=== PATIENT | female | born 1930 | race Caucasian/White ===

== ENCOUNTER 2016-06-30 10:26 | Inpatient (IN) | payer OTHER ==
[2016-06-30] VITALS (11 sets, daily range): BP systolic 106–148; BP diastolic 54–97; PULSE 61–84; TEMP 36.4–37.4; O2SAT 91–100; Ht 167.6 cm; Wt 115.6 kg
[~2016-06-30] VITALS: Ht 167.6 cm; Wt 115.6 kg
[~2016-06-30 10:26] MED LIST: ADVIN25/60 INH; ALL100 PO; ASPI-232 PO; FRS/40 PO; FURO80TA63 PO; GABA1CAP PO; GLC5 PO; IPRA1AER2 INH; METO25TA3 PO; OXGN; PANT40TA PO; PRVC/40 PO; WARF4TAB PO
[2016-06-30] MEDS ORDERED: SODIUM CHLORIDE 0.9% 1000ML 1,000 ML IV STA (11:54)
--- NOTE | 2016-06-30 11:58 | EMERGENCY ROOM VISIT NOTE ---
History Report prepared by Eusebio: Johnson Baez Under the Supervision of: Dr. Hiwot Bender M.D. First contact with patient: 11:32 Chief Complaint: SHORTNESS OF BREATH Stated Complaint: SOB Nursing Triage Summary: Patient c/o SOB x 2 weeks. Associated bilateral leg swelling since April but now they're not going down. Wears O2 at night but has been using it during the day as well since Wednesday afternoon 2L. Pt daughter states patient has had dark stool for 2 weeks as well and that pt has had a history of bleeding ulcer. DM NIDDM Glypside. Hx COPD History of Present Illness The patient is an 85 year old female with a history of COPD who presents to the Emergency Room with complaints of persistent shortness of breath for the past two weeks. The patient's shortness of breath is exacerbated by exertion. She wears 2L of oxygen at night only, but has had to wear her oxygen during the day lately due to her increased shortness of breath. The patient also complains of dark stools for the past two weeks. She has not noticed any bright red blood in the stools. A soil fertility specialist of the patient notes that her bilateral lower extremities have been more swollen lately. They have been swollen in the past, which usually resolves. The patient was admitted to the hospital this past summer for a right DVT. She is on Coumadin. Source of History: patient, other (soil fertility specialist) Onset: two weeks Position: other Quality: other (shortness of breath) Timing: other (persistent) Modifying Factors (Relieving): oxygen Associated Symptoms: + melena, No hematochezia Review of Systems See HPI for pertinent positives & negatives. A total of 10 systems reviewed and were otherwise negative. Past Medical & Surgical Medical Problems: (1) Benign hypertension (2) Chronic obstructive lung disease (3) CKD (chronic kidney disease), stage IV (4) Congestive heart failure with left ventricular diastolic dysfunction (5) Diabetes mellitus type 2 (6) Dyslipidemia (7) GI bleed (8) Gout (9) History of peptic ulcer disease (10) Idiopathic peripheral neuropathy (11) Nocturnal hypoxia (12) Peripheral venous insufficiency (13) Sensorineural hearing loss, bilateral (14) Uterine cancer Surgical Problems: (1) Status post appendectomy (2) Status post left hip replacement (3) Status post parathyroidectomy Family History Colon cancer UNCLE Heart disease MOTHER Lung cancer BROTHER Uterine cancer DAUGHTER DAUGHTER Social History Smoking Status: Never Smoker Alcohol Use: none Drug Use: none Marital Status: Housing Status: lives with family Current/Historical Medications Scheduled Allopurinol (Zyloprim), 100 MG PO BID Aspirin (Aspir-81), 81 MG PO HS Calcitriol (Calcitriol), 0.25 MCG PO DAILY Cholecalciferol (Vitamin D3), 1,000 UNITS PO DAILY Furosemide (Lasix), 80 MG PO QAM Furosemide (Lasix), 40 MG PO 4PM Gabapentin (Neurontin), 100 MG PO BID Glipizide (Glipizide), 5 MG PO QAM Insulin Aspart (Novolog Flexpen), 0 UNITS SC ACHS Insulin Glargine (Lantus Solostar), 0 UNIT SC DAILY Metoprolol Succ (Toprol Xl) (Toprol-Xl), 50 MG PO QAM Oxygen (Oxygen), 2 LITERS NA HS Pantoprazole (Protonix), 40 MG PO DAILY Pantoprazole (Protonix), 40 MG IV continuous Pravastatin Sod (Pravastatin Sodium), 40 MG PO HS Warfarin Sodium (Coumadin), 4 MG PO 2XWK Warfarin Sodium (Coumadin), 2 MG PO 5XWK Scheduled PRN Fluticasone Prop/Salmeterol (Advair Diskus 250/50 60 Dose), 1 PUFF INH BID PRN for PRN Ipratropium-Albuterol (Combivent Respimat), 2 PUFFS INH QID PRN for SOB/Wheezing Allergies Coded Allergies: Dextromethorphan (Verified Allergy, Severe, SHORTNESS OF BREATH, 06/30/16) Doxylamine (Verified Allergy, Severe, SHORTNESS OF BREATH, 06/30/16) Ethanol (Verified Allergy, Severe, SHORTNESS OF BREATH, 06/30/16) Pseudoephedrine (Verified Allergy, Severe, SHORTNESS OF BREATH, 06/30/16) Sulfa Antibiotics (Verified Allergy, Unknown, "SULFA DRUGS": HIVES, 06/30/16 ) Physical Exam Vital Signs Date Time Temp Pulse Resp B/P Pulse Ox O2 Delivery O2 Flow Rate FiO2 06/30/16 18:48 36.9 82 16 135/77 91 Room Air 06/30/16 18:25 37.4 76 18 132/97 98 2.0 06/30/16 18:00 80 18 144/70 99 Nasal Cannula 2.0 06/30/16 17:26 37.0 75 17 137/54 100 2.0 06/30/16 17:19 Room Air 06/30/16 16:27 37.0 84 18 127/78 98 2.0 06/30/16 16:26 Nasal Cannula 2.0 06/30/16 15:57 36.9 84 19 129/61 91 06/30/16 15:30 36.6 80 16 117/55 92 06/30/16 14:30 82 16 118/49 92 Room Air 06/30/16 14:01 82 06/30/16 13:48 89 18 118/57 92 Room Air 06/30/16 12:16 78 18 141/64 95 Room Air 06/30/16 11:19 80 06/30/16 11:07 Room Air 06/30/16 10:31 37.1 78 20 114/55 98 Room Air Physical Exam Vital signs reviewed. General: Obese, elderly, chronically ill-appearing female. HEENT: No scleral icterus, PERRLA, neck supple. Atraumatic. Cardiovascular: Regular rate and rhythm, no extra sounds. Pulmonary: Clear to auscultation bilaterally, normal work of breathing. Abdomen: Soft, nontender, nondistended, positive bowel sounds. Obese. Musculoskeletal: Atraumatic, no peripheral edema. Neurologic: Patient awake alert and oriented x 3, full strength in all 4 extremities. Cranial nerves 2 through 12 grossly intact. Skin: Warm, dry, no rash Rectal: Guaiac positive melanotic stool. Normal mucosa Medical Decision & Procedures ER Provider Diagnostic Interpretation: X-ray results as stated below per interpretation by me and the radiologist: CHEST ONE VIEW PORTABLE CLINICAL HISTORY: Shortness of breath. COMPARISON STUDY: Chest radiograph October 15, 2015. FINDINGS: Incidental note is made of degenerative changes of both shoulders with elevation of the left humeral head. There is a surgical anchor within the right humeral head. There is no pneumothorax or pleural effusion. Mild left basilar opacity is present. Mild cardiomegaly is unchanged. There is no evidence of pulmonary edema edema. IMPRESSION: Mild left basilar opacity. Atelectasis is favored over consolidation. Electronically signed by: Nathen Vasquez M.D. 06/30/2016 12:11 PM Dictated Date/Time: 06/30/2016 12:10 PM Laboratory Results Test 06/30/16 00:00 06/30/16 11:50 06/30/16 12:06 Immature Granulocyte % (Auto) 0.5 % White Blood Count 8.43 K/uL (4.8-10.8) Red Blood Count 2.53 M/uL (4.2-5.4) Hemoglobin 6.6 g/dL (12.0-16.0) Hematocrit 21.9 % (37-47) Mean Corpuscular Volume 86.6 fL (80-100) Mean Corpuscular Hemoglobin 26.1 pg (25-34) Mean Corpuscular Hemoglobin Concent 30.1 g/dl (32-36) Platelet Count 319 K/uL (130-400) Mean Platelet Volume 9.6 fL (7.4-10.4) Neutrophils (%) (Auto) 71.6 % Lymphocytes (%) (Auto) 21.0 % Monocytes (%) (Auto) 5.3 % Eosinophils (%) (Auto) 1.5 % Basophils (%) (Auto) 0.1 % Neutrophils # (Auto) 6.03 K/uL (1.4-6.5) Lymphocytes # (Auto) 1.77 K/uL (1.2-3.4) Monocytes # (Auto) 0.45 K/uL (0.11-0.59) Eosinophils # (Auto) 0.13 K/uL (0-0.5) Basophils # (Auto) 0.01 K/uL (0-0.2) Immature Granulocyte # (Auto) 0.04 K/uL (0.00-0.02) Red Blood Cell Morphology Unremarkable Hypochromasia PRESENT Activated Partial Thromboplast Time 44.8 SECONDS (21.0-31.0) Partial Thromboplastin Ratio 1.7 Total Bilirubin 0.2 mg/dl (0.2-1) Direct Bilirubin < 0.1 mg/dl (0-0.2) Aspartate Amino Transf (AST/SGOT) 11 U/L (15-37) Alanine Aminotransferase (ALT/SGPT) 13 U/L (12-78) Alkaline Phosphatase 74 U/L (45-117) Total Protein 6.4 gm/dl (6.4-8.2) Albumin 3.1 gm/dl (3.4-5.0) Urine Color YELLOW Urine Appearance CLEAR (CLEAR) Urine pH 6.5 (4.5-7.5) Urine Specific [place] 1.014 (1.000-1.030) Urine Protein NEG (NEG) Urine Glucose (UA) NEG (NEG) Urine Ketones NEG (NEG) Urine Occult Blood NEG (NEG) Urine Nitrite NEG (NEG) Urine Bilirubin NEG (NEG) Urine Urobilinogen NEG (NEG) Urine Leukocyte Esterase TRACE (NEG) Urine WBC (Auto) 1-5 /hpf (0-5) Urine RBC (Auto) 0-4 /hpf (0-4) Urine Hyaline Casts (Auto) 1-5 /lpf (0-5) Urine Epithelial Cells (Auto) >30 /lpf (0-5) Urine Bacteria (Auto) NEG (NEG) Bedside Troponin I 0.010 ng/ml (0-0.045) Laboratory results per my review. Medications Administered Medications (Trade) Dose Ordered Sig/Champ Route Start Time Stop Time Status Last Admin Dose Admin Pantoprazole Sodium 40 mg/ Syringe 10 ml @ 5 mls/min NOW ONCE IV 06/30/16 12:00 06/30/16 12:01 DC 06/30/16 12:16 5 MLS/MIN Sodium Chloride 1,000 ml @ 125 mls/hr Q8H STAT IV 06/30/16 11:54 06/30/16 19:07 DC 06/30/16 12:16 125 MLS/HR Phytonadione/ Sodium Chloride (Aqua-Mephyton Inj/Nss 50ml) 50.5 ml @ 101 mls/hr ONE ONCE IV 06/30/16 14:15 06/30/16 14:44 DC 06/30/16 15:04 101 MLS/HR Polyethylene (Miralax Powder Packet) 17 gm DAILY PRN PO 06/30/16 16:45 07/02/16 21:36 DC 07/02/16 11:02 17 GM Insulin Aspart SLIDING SCALE If C... ACHS SC 06/30/16 18:00 07/02/16 21:36 DC 07/02/16 18:12 4 UNITS Furosemide/Syringe (Lasix Inj/ Syringe) 4 ml @ 4 mls/min 1730 IV 06/30/16 17:30 06/30/16 20:00 DC 2/7/17 19:17 4 MLS/MIN ECG Indication: SOB/dyspnea Rate (beats per minute): 90 Rhythm: atrial flutter Findings: nonspecific-ST abn, other (variable block) ED Course 1153: Past medical records reviewed. The patient was evaluated in room B3b. A complete history and physical examination was performed. 1154: NSS 1000 ml @ 125 mls/hr. 1200: Pantoprazole Sodium 40 mg / syringe 10 ml @ 5 mls/min. 1400: The patient has signed a blood consent. 1415: Phytonadione 5 mg . NSS 50.5 ml @ 101 mls/hr IV. 1440: Discussed the case with Jackelin Bowen PA-C, [facility]. The patient will be evaluated. Medical Decision Differential diagnosis: Etiologies such as infections, reactive airway disease, pneumonia, pneumothorax , COPD, CHF, cardiac ischemia, pulmonary embolism, musculoskeletal, gastrointestinal, as well as others were entertained. This pt was evaluated and appeared to be in no distress. IV access was obtained and lab work was drawn. Pt was placed on the pvc monitor. Pt was given IV protonix as stool is melanotic. Pt was hydrated with NSS. H/H is found to be low at 6.6/21.9. Pt was type and crossed for 2 units. INR was 2.8 , Vit K 5 mg was given. Pt was d/w the hospitalist service for further management. He will return to the ED for worsening of symptoms or any medical concerns. Consults Time Called: 1430 Consulting Physician: Jackelin Bowen PA-C, [facility]. Returned Call: [phone]: Discussed the case with Jackelin Bowen PA-C, [facility]. The patient will be evaluated. Impression Primary Impression: GI bleed Critical Care I have personally spent greater than 30 minutes of critical care time in the direct management of this patient. This includes bedside care, interpretation of diagnostic studies, and testing, discussion with consultants, patient, and family members, and other required patient management activities. This 30 minutes is in excess of all separately billable procedures. Scribe Attestation The scribe's documentation has been prepared under my direction and personally reviewed by me in its entirety. I confirm that the note above accurately reflects all work, treatment, procedures, and medical decision making performed by me. Departure Information Dispostion Being Evaluated By Hospitalist Prescriptions Pantoprazole (Protonix) 1 Ea Inj 40 MG IV continuous for 30 Days Pantoprazole drip Prov: Crystal Hill MD 07/02/16 Insulin Glargine (Lantus Solostar) 100 Unit/Ml Inj 0 UNIT SC DAILY for 30 Days If BSG <120 do not give lantus If BSG 121-179 give 5units If BSG >180 give 10units Prov: Crystal Hill MD 07/02/16 Insulin Aspart (Novolog Flexpen) 100 Units/Ml Inj 0 UNITS SC ACHS for 30 Days Goal range 140 - 180 Correction factor of 40 CHO ratio 1:13 Prov: Crystal Hill MD 07/02/16 Referrals Corky Garces D.OJennyfer (PCP) Patient Instructions [facility] Problem Qualifiers Primary Impression: GI bleed GI bleed type/associated pathology: melena Qualified Codes: K92.1 - Melena
[2016-06-30] MEDS ORDERED: PANTOprazole INJ 40 MG in SYRINGE 0 ML IV ONE (12:00)
--- NOTE | 2016-06-30 12:12 | DIAGNOSTIC IMAGING REPORT ---
CHEST ONE VIEW PORTABLE CLINICAL HISTORY: Shortness of breath. COMPARISON STUDY: Chest radiograph October 15, 2015. FINDINGS: Incidental note is made of degenerative changes of both shoulders with elevation of the left humeral head. There is a surgical anchor within the right humeral head. There is no pneumothorax or pleural effusion. Mild left basilar opacity is present. Mild cardiomegaly is unchanged. There is no evidence of pulmonary edema edema. IMPRESSION: Mild left basilar opacity. Atelectasis is favored over consolidation. Electronically signed by: Nathen Vasquez M.D. 06/30/2016 12:11 PM Dictated Date/Time: 06/30/2016 12:10 PM
[2016-06-30] MEDS ORDERED: ALLO100T PO (12:15)
[2016-06-30] MEDS ORDERED: WARF2TAB PO (12:15)
[2016-06-30 12:17] LABS: INR 2.8 (0.9-1.1); PARTIAL THROMBOPLASTIN RATIO 1.7; PROTHROMBIN TIME (PATIENT) 31.8 SECONDS (9.0-12.0)
[2016-06-30 12:20] LABS: ALT/SGPT 13 U/L (12-78); AST/SGOT 11 U/L (15-37); BLOOD UREA NITROGEN 57 mg/dl (7-18); BUN/CREATININE RATIO 38.2 (10-20); CALCIUM 8.7 mg/dl (8.5-10.1); CARBON DIOXIDE 32 mmol/L (21-32); CHLORIDE 102 mmol/L (98-107); GLUCOSE 205 mg/dl (70-99); POTASSIUM 3.9 mmol/L (3.5-5.1); SODIUM 143 mmol/L (136-145)
[2016-06-30 12:22] LABS: ALKALINE PHOSPHATASE 74 U/L (45-117)
[2016-06-30 12:32] LABS: HEMATOCRIT 21.9 % (37-47); MEAN CELL VOLUME 86.6 fL (80-100); MEAN CORPUSCULAR HEMOGLOBIN 26.1 pg (25-34); MEAN CORPUSCULAR HGB CONC 30.1 g/dl (32-36); MEAN PLATELET VOLUME 9.6 fL (7.4-10.4); PLATELET COUNT 319 K/uL (130-400); RED BLOOD COUNT 2.53 M/uL (4.2-5.4); WHITE BLOOD COUNT 8.43 K/uL (4.8-10.8)
[2016-06-30 12:34] LABS: HYPOCHROMIA PRESENT
[2016-06-30 12:36] LABS: BASO % 0.1 %; BASO ABS # 0.01 K/uL (0-0.2); COMPLETE YES; EOS % 1.5 %; IG% 0.5 %; LYMPH ABS # 1.77 K/uL (1.2-3.4); MONO % 5.3 %; NEUT % 71.6 %
[2016-06-30 13:38] LABS: URINE APPEARANCE CLEAR (CLEAR); URINE BILIRUBIN NEG (NEG); URINE COLOR YELLOW; URINE EPITHELIAL CELL AUTO >30 /lpf (0-5); URINE NITRITE NEG (NEG); URINE PH 6.5 (4.5-7.5); URINE SPECIFIC GRAVITY 1.014 (1.000-1.030); UROBILINOGEN NEG (NEG); ZZUR CULT IF INDIC CLEAN CATCH NO
[2016-06-30 13:40] LABS: MANUAL MICROSCOPIC REQUIRED? NO; REVIEW REQ? NO
[2016-06-30] MEDS ORDERED: PHYTONADIONE INJ 5 MG in SODIUM CHLORIDE 0.9% 50ML 50 ML IV ONE (14:15)
[2016-06-30] MEDS ORDERED: ONDANSETRON INJ 2 MG/ML 2 ML VIAL IV PRN (16:45)
[2016-06-30] MEDS ORDERED: POLYETHYLENE (MIRALAX) 17 GM PACK PO PRN (16:45)
[2016-06-30] MEDS ORDERED: GLUCOSE 40% GEL 15 GM TUBE PO PRN (16:45)
[2016-06-30] MEDS ORDERED: DEXTROSE 50% 50 ML SYR IV PRN (16:45)
[2016-06-30] MEDS ORDERED: GLUCAGON FOR INJ 1 MG VIAL SQ PRN (16:45)
[2016-06-30] MEDS ORDERED: GLUCOSE 10 TABS/TUBE PO PRN (16:45)
[2016-06-30] MEDS ORDERED: PHARMACY GLYCEMIC MGMT CONSULT PRN (17:08)
[2016-06-30] MEDS ORDERED: VTMD1000 PO (17:14)
[2016-06-30] MEDS ORDERED: IPRA1AER2 INH (17:14)
[2016-06-30] MEDS ORDERED: RCL25 PO (17:14)
[2016-06-30] MEDS ORDERED: IPRATROPIUM BROMIDE/ALBUTEROL respimat INH INH PRN (17:15)
[2016-06-30] MEDS ORDERED: FLUTICASONE/SALMETEROL 250/50 (ADVAIR) 14 PUFF/1 INHALER INH PRN (17:15)
[2016-06-30] MEDS ORDERED: FUROSEMIDE INJ 40 MG in SYRINGE 0 ML IV SCH (17:30)
[2016-06-30] MEDS: INSULIN ASPART 100 UNITS/ML 3 ML PEN SC SCH ×2 (19:00→20:56)
[2016-06-30] MEDS ORDERED: PANTOprazole INJ 80 MG in DEXTROSE 5% 100ML IV SCH (19:30)
[2016-06-30] MEDS: PANTOprazole INJ 40 MG in DEXTROSE 5% 100ML IV SCH (19:45)
--- NOTE | 2016-06-30 20:30 | Pharmacy Progress Note ---
Glycemic Control Intl Consult Date of Service Jun 30, 2016. Scope Glycemic Pharmacist consulted by Dr Park on 06/30/15 for glycemic control and to write orders per [facility] inpatient glycemic control protocol Objective Weight (Kilograms): 114.000 Accuchecks BSG (last 24hrs): Test 06/30/16 00:00 06/30/16 19:00 Random Glucose 205 mg/dl (70-99) Bedside Glucose 126 mg/dl (70-90) Laboratory Data (last 24hrs) Test 06/30/16 00:00 Anion Gap 9.0 mmol/L BUN/Creatinine Ratio 38.2 Blood Urea Nitrogen 57 mg/dl Creatinine 1.50 mg/dl Potassium Level 3.9 mmol/L Sodium Level 143 mmol/L White Blood Count 8.43 K/uL Red Blood Count 2.53 M/uL Hemoglobin 6.6 g/dL Hematocrit 21.9 % Mean Corpuscular Volume 86.6 fL Mean Corpuscular Hemoglobin 26.1 pg Mean Corpuscular Hemoglobin Concent 30.1 g/dl Platelet Count 319 K/uL Mean Platelet Volume 9.6 fL Neutrophils (%) (Auto) 71.6 % Lymphocytes (%) (Auto) 21.0 % Monocytes (%) (Auto) 5.3 % Eosinophils (%) (Auto) 1.5 % Basophils (%) (Auto) 0.1 % Neutrophils # (Auto) 6.03 K/uL Lymphocytes # (Auto) 1.77 K/uL Monocytes # (Auto) 0.45 K/uL Eosinophils # (Auto) 0.13 K/uL Basophils # (Auto) 0.01 K/uL HbA1c 7.8% on 10/16/15 Recent Pertinent Medications Outpatient Anti-diabetic Regimen: * Glipizide 5mg PO QAM The patient is currently ordered: * Basal insulin: Lantus 10 units every 24 hours given at bedtime * Correctional Insulin: Novolog Correction per scale ACHS Goal Range: Low 100 mg/dL - High 140 mg/dL Correction Factor: 40 mg/dL/unit * Prandial insulin: Per carb ratio of 1 unit per 13 grams CHO consumed * Oral Agents: On hold for admission Risk Factors for Insulin Resistance: * Illness/Stress Risk Factors for Insulin Sensitivity: * Advanced age * 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 This value is outdated, however, will not re-order as pt received blood transfusion this evening which would make new result unreliable. * Pt is maintained on glipizide as an outpatient - last taken this morning. Sulfonylureas can induce long standing hypoglycemia with acute renal impairment on top of decreased PO intake. Will have to monitor for hypoglycemia closely. * Acute renal impairment can lead to increased insulin sensitivity d/t pharmacodynamic changes - response is greater with a given dose of insulin * Patient is insulin naive and has potential for hypoglycemia - will dose insulin very conservatively and titrate base on BSG trends * Use weight based dosing with minimal stressors * Use "BSG range based" basal insulin dosing- pt likely still has glipizide on board and may not require basal insulin while BSGs close to goal range. * Keep goal range high to help prevent hypo when BSG below goal range (CHO coverage subtracted off) * ADA & AACE recommend a goal blood sugar range 140-180 mg/dl for the majority of critically ill & non-critically ill patients. However, more stringent targets may be selected in individual cases. PLAN FOR INPATIENT GLYCEMIC CONTROL: * Hold outpatient oral diabetes medications (glipizide) * Slightly decrease Basal insulin with Lantus - change dosing to AM as pt likely still has glipizide on board. Dosing based on AM fasting BSG * If BSG 120mg/dl or below --> do not give Lantus * If BSG 121-179mg/dl --> Give Lantus 5 units * If BSG 180mg/dl or above --> Give Lantus 10 units * Continue Correctional Insulin with NOVOLOG per scale ACHS or Q6hrs while NPO * Increase Goal Range: Low 140 mg/dL - High 180 mg/dL * Correction Factor: 40 mg/dL/unit * Nutritional / Prandial insulin per carb ratio of 1 unit per 13 grams CHO consumed * Please note that the plan above was derived based on current level of insulin resistance and hospital stress. These recommendations are appropriate for inpatient admission only. Plan of care upon discharge will need to be reassessed to avoid potential outpatient hypo/hyperglycemia. Thank you.
[2016-06-30 20:34] LABS: HEMATOCRIT 23.4 % (37-47)
[2016-06-30] MEDS: PRAVASTATIN SOD 40 MG TAB PO SCH (20:52)
[2016-06-30] MEDS: GABAPENTIN 100 MG CAP PO SCH (20:52)
[2016-06-30] MEDS: ALLOPURINOL 100 MG TAB PO SCH (20:52)
[2016-06-30] MEDS ORDERED: INSULIN GLARGINE SOLOSTAR 100 UNITS/ML 3 ML PEN SC SCH (21:00)
[2016-06-30] MEDS ORDERED: NURSING VERBAL MED ORDER ONE (21:30)
--- NOTE | 2016-06-30 22:03 | History and Physical ---
History & Physical Date & Time of Service: Jun 30, 2016 at 16:24 Chief Complaint: SOB Primary Care Physician: Corky Garces D.O. History of Present Illness 85 yo F with h/o PUD and UGIB in 2012 presents with dark stools daily for two weeks along with progressive worsening of shortness of breath. She has been on twice daily PPI chronically, and aside from baby aspirin does not take any NSAIDs or OTC medications. She presented similarly in 2012 when she was found to have a mild ring and a small erosion at the GE junction along with a small shallow clean based ulcer in the antrum. A second nodular erosion was also seen with the remainder of the stomach appearing normal. At that time her baby aspirin was held for one week and she was placed on PPI for 3 months with repeat scope 6 weeks later. For the past two weeks she has experienced shortness of breath with increased oxygen requirements up to 2L continuously, dark stools without evidence of bright red blood and feels that her legs are more swollen. She is on Coumadin for a h/o R DVT. She reports using a rescue kit for COPD around the hol, and tool roughly 16 days of prednisone ending around Jun 02. She felt better from a breathing standpoint after that treatment and prior to current symptoms starting. Today in the ER, her bloodwork reveals H/H 6.6/22 and PLTs 319, EBC 8, BUN 57, creat 1/5 with baseline creat 1.2-1.5. She is HD stable and off oxygen during this interview with no conversational dyspnea or significant work of breathing. She was given vit K 5mg, Protonix 40 IV and NSS. Two units of pRBCs were ordered and transfusion was started in the ER. Past Medical/Surgical History Medical Problems: (1) Benign hypertension Status: Chronic (2) Chronic obstructive lung disease Status: Chronic (3) CKD (chronic kidney disease), stage IV Status: Chronic (4) Congestive heart failure with left ventricular diastolic dysfunction Status: Chronic (5) Diabetes mellitus type 2 Status: Chronic (6) Dyslipidemia Status: Chronic (7) Gout Status: Chronic (8) History of peptic ulcer disease Status: Chronic (9) Idiopathic peripheral neuropathy Status: Chronic (10) Nocturnal hypoxia Status: Chronic (11) Peripheral venous insufficiency Status: Chronic (12) Sensorineural hearing loss, bilateral Status: Chronic (13) Uterine cancer Permanent Comment: Postmenopausal vaginal bleeding 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 Social History Smoking Status: Never Smoker Alcohol Use: none Drug Use: none Marital Status: Housing status: lives with family (lives with her daughter) Immunizations History of Influenza Vaccine: Yes Influenza Vaccine Date: Feb 06, 2016 History of Tetanus Vaccine?: Yes Tetanus Immunization Date: Jan 17, 2013 History of Pneumococcal: Yes Pneumococcal Date: Feb 04, 2015 History of Hepatitis B Vaccine: No Multi-Drug Resistant Organisms History of MDRO: No Allergies Coded Allergies: Acetaminophen (Verified Allergy, Severe, SHORTNESS OF BREATH, 06/30/16) Dextromethorphan (Verified Allergy, Severe, SHORTNESS OF BREATH, 06/30/16) Doxylamine (Verified Allergy, Severe, SHORTNESS OF BREATH, 06/30/16) Ethanol (Verified Allergy, Severe, SHORTNESS OF BREATH, 06/30/16) Pseudoephedrine (Verified Allergy, Severe, SHORTNESS OF BREATH, 06/30/16) Sulfa Antibiotics (Verified Allergy, Unknown, "SULFA DRUGS": HIVES, 06/30/16 ) Home Medications Scheduled Allopurinol (Zyloprim), 100 MG PO BID Aspirin (Aspir-81), 81 MG PO HS Calcitriol (Calcitriol), 0.25 MCG PO DAILY Cholecalciferol (Vitamin D3), 1,000 UNITS PO DAILY Furosemide (Lasix), 80 MG PO QAM Furosemide (Lasix), 40 MG PO 4PM Gabapentin (Neurontin), 100 MG PO BID Glipizide (Glipizide), 5 MG PO QAM Metoprolol Succ (Toprol Xl) (Toprol-Xl), 50 MG PO QAM Oxygen (Oxygen), 2 LITERS NA HS Pantoprazole (Protonix), 40 MG PO DAILY Pravastatin Sod (Pravastatin Sodium), 40 MG PO HS Warfarin Sodium (Coumadin), 4 MG PO 2XWK Warfarin Sodium (Coumadin), 2 MG PO 5XWK Scheduled PRN Fluticasone Prop/Salmeterol (Advair Diskus 250/50 60 Dose), 1 PUFF INH BID PRN for PRN Ipratropium-Albuterol (Combivent Respimat), 2 PUFFS INH QID PRN for SOB/Wheezing Review of Systems Constitutional: No chills, No fever Eyes: No problem reported ENT: + hearing loss, No sore throat Respiratory: + dyspnea on exertion, + shortness of breath, No cough, No hemoptysis Cardiovascular: + edema, No chest pain Abdomen: + GI bleeding (dark stools once daily for the past two weeks. ), No constipation, No diarrhea, No nausea, No pain, No vomiting Musculoskeletal: + joint pain (chronic pain in toes 2/2 gout) Genitourinary - Female: No dysuria, No hematuria, No urinary urgency Neurologic: No problem reported Psychiatric: No problem reported Integumentary: No bleeding, No new/changing skin lesions, No rash Allergic / Immunologic: No food allergies Physical Exam Vital Signs Date Time Temp Pulse Resp B/P Pulse Ox O2 Delivery O2 Flow Rate FiO2 06/30/16 15:57 36.9 84 19 129/61 91 06/30/16 15:30 36.6 80 16 117/55 92 06/30/16 14:30 82 16 118/49 92 Room Air 06/30/16 14:01 82 06/30/16 13:48 89 18 118/57 92 Room Air 06/30/16 12:16 78 18 141/64 95 Room Air 06/30/16 11:19 80 06/30/16 11:07 Room Air 06/30/16 10:31 37.1 78 20 114/55 98 Room Air GEN: WNWD, in no acute distress, alert and appropriate, not on oxygen with no tachypnea or conversational dyspnea HEENT: NC/AT, PERRL, normal sclerae, pharynx non-acute, mucous membranes appear dry CARDIO: reg rate, S1/2 heard without m/g/r LUNGS: CTA bilaterally, no crackles, rales or wheezes, good diaphragmatic excursion ABD: soft, non-tender, non-distended, no rebound or guarding EXTREMITY: RP and DP palpable 2+ bilat, no LE swelling or edema, extremities are warm and well-perfused NEURO: CN 2-12 grossly intact, sensation intact throughout MUSC: 5/5 strength throughout, no focal deficits SKIN: warm and dry Diagnostics Laboratory Results Results Past 24 Hours Test 06/30/16 00:00 06/30/16 11:50 06/30/16 12:06 Range/Units White Blood Count 8.43 4.8-10.8 K/uL Red Blood Count 2.53 4.2-5.4 M/uL Hemoglobin 6.6 12.0-16.0 g/dL Hematocrit 21.9 37-47 % Mean Corpuscular Volume 86.6 80-100 fL Mean Corpuscular Hemoglobin 26.1 25-34 pg Mean Corpuscular Hemoglobin Concent 30.1 32-36 g/dl Platelet Count 319 130-400 K/uL Mean Platelet Volume 9.6 7.4-10.4 fL Neutrophils (%) (Auto) 71.6 % Lymphocytes (%) (Auto) 21.0 % Monocytes (%) (Auto) 5.3 % Eosinophils (%) (Auto) 1.5 % Basophils (%) (Auto) 0.1 % Neutrophils # (Auto) 6.03 1.4-6.5 K/uL Lymphocytes # (Auto) 1.77 1.2-3.4 K/uL Monocytes # (Auto) 0.45 0.11-0.59 K/uL Eosinophils # (Auto) 0.13 0-0.5 K/uL Basophils # (Auto) 0.01 0-0.2 K/uL RDW Standard Deviation 55.3 36.4-46.3 fL RDW Coefficient of Variation 17.5 11.5-14.5 % Immature Granulocyte % (Auto) 0.5 % Immature Granulocyte # (Auto) 0.04 0.00-0.02 K/uL Nucleated RBC Absolute Count (auto) 0.04 0-0 K/uL Nucleated Red Blood Cells % 0.4 % Red Blood Cell Morphology Unremarkable Hypochromasia PRESENT Prothrombin Time 31.8 9.0-12.0 SECONDS Prothromb Time International Ratio 2.8 0.9-1.1 Activated Partial Thromboplast Time 44.8 21.0-31.0 SECONDS Partial Thromboplastin Ratio 1.7 Sodium Level 143 136-145 mmol/L Potassium Level 3.9 3.5-5.1 mmol/L Chloride Level 102 98-107 mmol/L Carbon Dioxide Level 32 21-32 mmol/L Anion Gap 9.0 3-11 mmol/L Blood Urea Nitrogen 57 7-18 mg/dl Creatinine 1.50 0.60-1.20 mg/dl Est Creatinine Clear Calc Drug Dose 33.9 ml/min Estimated GFR () 35.9 Estimated GFR (Non- 31.0 BUN/Creatinine Ratio 38.2 10-20 Random Glucose 205 70-99 mg/dl Calcium Level 8.7 8.5-10.1 mg/dl Total Bilirubin 0.2 0.2-1 mg/dl Direct Bilirubin < 0.1 0-0.2 mg/dl Aspartate Amino Transf (AST/SGOT) 11 15-37 U/L Alanine Aminotransferase (ALT/SGPT) 13 12-78 U/L Alkaline Phosphatase 74 45-117 U/L Total Protein 6.4 6.4-8.2 gm/dl Albumin 3.1 3.4-5.0 gm/dl Urine Color YELLOW Urine Appearance CLEAR CLEAR Urine pH 6.5 4.5-7.5 Urine Specific [place] 1.014 1.000-1.030 Urine Protein NEG NEG Urine Glucose (UA) NEG NEG Urine Ketones NEG NEG Urine Occult Blood NEG NEG Urine Nitrite NEG NEG Urine Bilirubin NEG NEG Urine Urobilinogen NEG NEG Urine Leukocyte Esterase TRACE NEG Urine WBC (Auto) 1-5 0-5 /hpf Urine RBC (Auto) 0-4 0-4 /hpf Urine Hyaline Casts (Auto) 1-5 0-5 /lpf Urine Epithelial Cells (Auto) >30 0-5 /lpf Urine Bacteria (Auto) NEG NEG Bedside Troponin I 0.010 0-0.045 ng/ml Diagnostic Radiology CXR (PORT): IMPRESSION: Mild left basilar opacity. Atelectasis is favored over consolidation. BLE U/S: pending EKG SR 90, no ST changes Impression Assessment and Plan 85 yoF with melena x two weeks and symptomatic anemia 1. Melena likely secondary to upper GI bleed, possibly from peptic ulcer disease or gastritis secondary to Aspirin use. The patient is currently hemodynamically stable. She has been started on a Protonix drip IV in the emergency room. She is being transfused 2 units of blood with Lasix in between units. We are going to monitor her hemoglobin every 6 hours and transfuse her p.r.n. to maintain hemoglobin > or = 10 given her coronary artery disease history. A GI consult was placed for possible endoscopy and she will be kept n.p.o. overnight. Clear liquid diet was ordered per Dr. Sheridan who will see her in the morning. 2. Acute Anemia 2/2 blood loss. Baseline H/H is 12. Trend H/H as above 3. Shortness of breath-this is most consistent with symptomatic anemia. No tachypnea or conversational dyspnea on exam and patient maintaining good oxygen saturation on room air. Pt with a h/o CAD per prior notes. She denies chest pain, cardiac enzymes negative in the ER (not trended as no concern for ACS), EKG reveals no signs of ischemia. Appears euvolemic on exam if not slightly dry with dry mucous membranes. 4. Chronic diastolic heart failure, compensated- She has a grade I diastolic dysfunction in echo 2008 and Lasix was held because of this acute GI bleed to prevent hypotension. 5. LE swelling with h/o DVT-on coumadin so DVT unlikely; repeat bilateral us which is pending. 6. Endometrial adenocarcinoma-diagnosed Apr 2015 (FIGO Grade 1 of 3)-not a candidate for surgery or CT scan with contrast for staging purposes and started Megace for treatment, but this was discontinued 2/2 DVT (summer 2015). Palliative radiation was also considered but it does not appear she had this treatment from the notes. Follow with Oncology as outpatient. 7. Diabetes II-on glipizide as outpatient-held. Hemoglobin A1c 7.8 as of September 2015. ISS with Glargine 10Units qHS. Glycemic pharmacy consult was placed. 8. Hypertension. The patient has well-controlled hypertension. Blood pressure around 120 systolic. Held her Lasix and Toprol to prevent any hypotensive episodes in the setting of a GI bleed. P.r.n. Hydralazine will be given for systolic blood pressure more than 160. 9. COPD, currently stable. There are no acute issues. Continue her usual Advair BID and Combivent QID PRN. CXR reveals atelectasis (no symptoms consistent with 10. Chronic kidney disease stage IV-at baseline creat 1.5. Avoid nephrotoxic agents to avoid further renal injury. 11. GI prophylaxis: Protonix drip. 12. DVT prophylaxis: SCDs for now because of GI bleed. Coumadin held; vit K given. Nutrition-clear liquid/NPO p MN Full Code-confirmed with both patient and her daughter at bedside Dispo: uncertain, PT/OT to evaluate, appreciate Case management input Heather Park DO [facility] Hospitalist Level of Care Telemetry Resuscitation Status FULL RESUSCITATION VTE Prophylaxis VTE Risk Assessment Done? Y/N: Yes Risk Level: Moderate Given or contraindicated: SCD's, Contraindicated
[2016-06-30] MEDS ORDERED: HydrALAZINE 10 MG TAB PO PRN (23:00)
[2016-06-30] MEDS ORDERED: SODIUM CHLORIDE 0.9% 1000ML 1,000 ML IV SCH (23:59)
[2016-07-01] VITALS (12 sets, daily range): BP systolic 109–156; BP diastolic 67–79; PULSE 59–117; TEMP 36.3–36.8; O2SAT 94–100
[2016-07-01] MEDS: PANTOprazole INJ 40 MG in DEXTROSE 5% 100ML IV SCH ×5 (00:45→20:28)
[2016-07-01 05:14] LABS: HEMATOCRIT 23.1 % (37-47); MEAN CELL VOLUME 86.8 fL (80-100); MEAN CORPUSCULAR HEMOGLOBIN 27.1 pg (25-34); MEAN CORPUSCULAR HGB CONC 31.2 g/dl (32-36); MEAN PLATELET VOLUME 9.4 fL (7.4-10.4); PLATELET COUNT 282 K/uL (130-400); RED BLOOD COUNT 2.66 M/uL (4.2-5.4); WHITE BLOOD COUNT 7.05 K/uL (4.8-10.8)
[2016-07-01 05:23] LABS: INR 1.5 (0.9-1.1); PROTHROMBIN TIME (PATIENT) 15.8 SECONDS (9.0-12.0)
[2016-07-01 05:36] LABS: BUN/CREATININE RATIO 41.3 (10-20); CALCIUM 8.2 mg/dl (8.5-10.1); CREATININE 1.3 mg/dl (0.60-1.20); MAGNESIUM 2.2 mg/dl (1.8-2.4); POTASSIUM 3.6 mmol/L (3.5-5.1)
[2016-07-01 06:32] LABS: ESTIMATED AVERAGE GLUCOSE 151 mg/dl; HA1C FLAG Normal (Normal)
[2016-07-01] MEDS: INSULIN ASPART 100 UNITS/ML 3 ML PEN SC SCH ×4 (07:00→20:34)
--- NOTE | 2016-07-01 07:44 | DIAGNOSTIC IMAGING REPORT ---
BILATERAL LOWER EXTREMITY VENOUS DOPPLER CLINICAL HISTORY: GI bleed. COMPARISON STUDY: No previous studies for comparison. TECHNIQUE: Sonography of the deep venous system of the bilateral lower extremities was performed. Compression and augmentation were evaluated. FINDINGS: There is nonocclusive thrombus within the right superficial femoral and popliteal veins. This thrombus is age indeterminate. These vessels are not expanded. There is no thrombus within the deep system of the left lower extremity. A right popliteal fluid collection measures 8.4 x 2.3 x 4.6 cm and the left popliteal fluid collection measures 6.8 x 0.8 x 2.7 cm. IMPRESSION: 1. Nonocclusive deep venous thrombus within the right superficial femoral and popliteal veins. This thrombus is age indeterminate but chronic thrombus is favored. 2. No deep venous thrombus within the left lower extremity. 3. Suspected bilateral popliteal cysts. Electronically signed by: Nathen Vasquez M.D. 07/01/2016 7:43 AM Dictated Date/Time: 07/01/2016 7:38 AM
--- NOTE | 2016-07-01 08:36 | Gastrointestinal Consultation ---
Gastrointestinal Consultation Date of Consultation: Jul 01, 2016 Attending Physician: Dr. Hill; consult from Dr. Park Consulting Physician: Dr. Sheridan Reason for Consultation: GI Bleeding History of Present Illness Patient is a 85 year old female patient of Dr. Garces with a hx of HTN COPD, CKD , CHF, DM-s, uterine cancer, DVT on Coumadin, who was brought to the ED for worsening SOB. GI is consulted for GI bleeding. Regarding her risk for GI bleeding, she is on Coumadin for history of DVT and takes on 81mg ASA daily, no other NSAIDs. She tells me that she has had increasing SOB for the past 2 weeks and that during these same two weeks, she has had mostly black, formed BMs, 1-2/day. This is the same frequency and consistency of BMs as usual for her, just a change in color from brown to black. She denies any abdominal pain. She is seen and examined while she is sitting up in a chair at the beside. She is on O2 but otherwise appears well and is hemodynamically stable. On arrival, Hb 6.6, down from 03/01 in November 2015. INR was 2.6 on arrival and is now 1.5 after receiving 5 mg of Vit K. Cr on arrival was 1.5, up from her baseline of 1.2. BUN is 54. US with (likely) chronic LL leg nonocclusive deep venous thrombus within the right superficial femoral and popliteal veins. Past Medical/Surgical History Past Medical History: 1. HTN 2. COPD 3. CKD 4. CHF 5. DM-2 6. Uterine cancer 7. DVT on Coumadin 8. Gout 9. PUD 10. PCD 11. Hearing loss 12. Uterine Cancer 13. Prior UGI bleed in 2013 from Peptic Ulcer Disease. Past Surgical History: 1. Appendectomy 2. Left hip replacement 3. Parathyroidectomy Family History Colon cancer UNCLE Heart disease MOTHER Lung cancer BROTHER Uterine cancer DAUGHTER DAUGHTER Social History Smoking Status: Never Smoker Alcohol Use: none Drug Use: none Marital Status: Housing Status: lives with family Allergies Coded Allergies: Dextromethorphan (Verified Allergy, Severe, SHORTNESS OF BREATH, 06/30/16) Doxylamine (Verified Allergy, Severe, SHORTNESS OF BREATH, 06/30/16) Ethanol (Verified Allergy, Severe, SHORTNESS OF BREATH, 06/30/16) Pseudoephedrine (Verified Allergy, Severe, SHORTNESS OF BREATH, 06/30/16) Sulfa Antibiotics (Verified Allergy, Unknown, "SULFA DRUGS": HIVES, 06/30/16 ) Current Medications Home Meds and Scripts Medications Dose Route/Sig Max Daily Dose Days Date Category Dose Instructions Vitamin D3 (Cholecalciferol) 1,000 Inter.unit Tab 1,000 Units PO DAILY 06/30/16 Reported Calcitriol 0.25 Mcg Cap 0.25 Mcg PO DAILY 06/30/16 Reported Combivent Respimat (Ipratropium-Albuterol) 1 Aer Aer 2 Puffs INH QID PRN 06/30/16 Reported Coumadin (Warfarin Sodium) 2 Mg Tab 2 Mg PO 5XWK 06/30/16 Reported sun,mon,wed,fatuma,sat Zyloprim (Allopurinol) 100 Mg Tab 100 Mg PO BID 06/30/16 Reported Coumadin (Warfarin Sodium) 4 Mg Tab 4 Mg PO 2XWK 01/22/16 Reported tue&fri @ 4pm Lasix (Furosemide) 40 Mg Tab 40 Mg PO 4PM 01/22/16 Reported Protonix (Pantoprazole Sodium) 40 Mg Tab 40 Mg PO DAILY 10/26/15 Reported Oxygen Gas 2 Liters NA HS 04/23/15 Reported Advair Diskus 250/50 60 Dose (Fluticasone Prop/Salmeterol) 1 Ea Aerp 1 Puff INH BID PRN 04/23/15 Reported Neurontin (Gabapentin) 100 Mg Cap 100 Mg PO BID 04/23/15 Reported Aspir-81 (Aspirin) 81 Mg Tab 81 Mg PO HS 90 04/23/15 Reported Pravastatin Sodium (Pravastatin Sod) 40 Mg Tab 40 Mg PO HS 04/23/15 Reported Glipizide 5 Mg Tab 5 Mg PO QAM 04/23/15 Reported Lasix (Furosemide) 80 Mg Tab 80 Mg PO QAM 05/15/12 Reported Toprol-Xl (Metoprolol Succinate) 25 Mg Tabcr 50 Mg PO QAM 03/11/09 Reported Review of Systems Constitutional: No chills, No fever, No sweats, No weakness, No weight loss Eyes: No eye pain, No redness ENT: No pain on swallowing, No sore throat, No trouble swallowing Respiratory: No cough, No dyspnea on exertion, No shortness of breath, No wheezing Cardiac: No chest pain, No edema, No palpitations Abdomen: + GI bleeding, + see HPI, No constipation, No diarrhea, No nausea, No pain, No vomiting Neuro: No balance problems, No memory loss, No numbness/tingling, No vertigo, No weakness Psych: No anxiety, No depression symptoms, No insomnia Heme: No abnormal bleeding/bruising, No night sweats Endo: No excessive thirst, No excessive urination Skin: No itch, No jaundice, No new/changing skin lesions, No rash Physical Exam Date Time Temp Pulse Resp B/P Pulse Ox O2 Delivery O2 Flow Rate FiO2 07/01/16 07:40 36.5 73 20 121/68 95 Room Air 07/01/16 07:30 36.5 73 18 121/68 95 07/01/16 07:15 36.5 65 16 117/70 95 07/01/16 07:15 36.5 117 16 117/70 95 07/01/16 07:00 36.5 67 18 119/70 95 07/01/16 06:35 36.4 66 18 109/68 100 2.0 07/01/16 04:02 Nasal Cannula 2.0 07/01/16 03:45 36.4 69 20 125/71 99 Nasal Cannula 2.0 07/01/16 00:02 Nasal Cannula 2.0 06/30/16 23:30 36.5 61 20 113/76 100 2.0 06/30/16 22:30 36.4 64 16 106/63 98 06/30/16 21:30 36.7 70 16 111/54 96 06/30/16 21:00 36.7 74 16 148/75 94 06/30/16 20:45 36.5 68 15 143/82 96 06/30/16 20:00 Room Air 06/30/16 18:48 36.9 82 16 135/77 91 Room Air 06/30/16 18:25 37.4 76 18 132/97 98 2.0 06/30/16 18:00 80 18 144/70 99 Nasal Cannula 2.0 06/30/16 17:26 37.0 75 17 137/54 100 2.0 06/30/16 17:19 Room Air 06/30/16 16:27 37.0 84 18 127/78 98 2.0 06/30/16 16:26 Nasal Cannula 2.0 06/30/16 15:57 36.9 84 19 129/61 91 06/30/16 15:30 36.6 80 16 117/55 92 06/30/16 14:30 82 16 118/49 92 Room Air 06/30/16 14:01 82 06/30/16 13:48 89 18 118/57 92 Room Air 06/30/16 12:16 78 18 141/64 95 Room Air 06/30/16 11:19 80 06/30/16 11:07 Room Air 06/30/16 10:31 37.1 78 20 114/55 98 Room Air General Appearance: no apparent distress Eyes: normal inspection, EOMI Neck: supple, no adenopathy, thyroid normal Respiratory/Chest: chest non-tender, lungs clear, normal breath sounds, no accessory muscle use Cardiovascular: regular rate, rhythm, no JVD, no murmur Abdomen: normal bowel sounds, non tender, soft, no organomegaly Extremities: normal inspection, no pedal edema, normal capillary refill Neurologic/Psych: alert, normal mood/affect, oriented x 3 Skin: normal color, no jaundice, warm/dry, no rash Laboratory Results Last 24 Hours Test 06/30/16 11:50 06/30/16 12:06 06/30/16 19:00 06/30/16 20:22 Urine Color YELLOW Urine Appearance CLEAR Urine pH 6.5 Urine Specific [place] 1.014 Urine Protein NEG Urine Glucose (UA) NEG Urine Ketones NEG Urine Occult Blood NEG Urine Nitrite NEG Urine Bilirubin NEG Urine Urobilinogen NEG Urine Leukocyte Esterase TRACE Urine WBC (Auto) 1-5 /hpf Urine RBC (Auto) 0-4 /hpf Urine Hyaline Casts (Auto) 1-5 /lpf Urine Epithelial Cells (Auto) >30 /lpf Urine Bacteria (Auto) NEG Bedside Troponin I 0.010 ng/ml Bedside Glucose 126 mg/dl Hemoglobin 7.1 g/dL Hematocrit 23.4 % Test 06/30/16 20:46 07/01/16 04:39 07/01/16 06:35 Bedside Glucose 249 mg/dl 135 mg/dl White Blood Count 7.05 K/uL Red Blood Count 2.66 M/uL Hemoglobin 7.2 g/dL Hematocrit 23.1 % Mean Corpuscular Volume 86.8 fL Mean Corpuscular Hemoglobin 27.1 pg Mean Corpuscular Hemoglobin Concent 31.2 g/dl RDW Standard Deviation 53.3 fL RDW Coefficient of Variation 16.7 % Platelet Count 282 K/uL Mean Platelet Volume 9.4 fL Nucleated RBC Absolute Count (auto) 0.02 K/uL Nucleated Red Blood Cells % 0.2 % Prothrombin Time 15.8 SECONDS Prothromb Time International Ratio 1.5 Sodium Level 146 mmol/L Potassium Level 3.6 mmol/L Chloride Level 105 mmol/L Carbon Dioxide Level 35 mmol/L Anion Gap 6.0 mmol/L Blood Urea Nitrogen 54 mg/dl Creatinine 1.30 mg/dl Est Creatinine Clear Calc Drug Dose 39.1 ml/min Estimated GFR () 42.7 Estimated GFR (Non- 36.9 BUN/Creatinine Ratio 41.3 Random Glucose 119 mg/dl Estimated Average Glucose 151 mg/dl Hemoglobin A1c 6.9 % Calcium Level 8.2 mg/dl Magnesium Level 2.2 mg/dl Impression Patient is a 85 year old female with melena, anemia of 6.6. This is suggestive of an upper GI bleed from gastric or duodenal ulcer. Plan 1. EGD today. 2. Agree with Protonix drip. 3. Further recommendations to follow EGD. Attg addendum: I interviweed and examined pt, reviwed chart and labs. Pt with dark stool, anemia, and increased BUN. Plan EGD.
[2016-07-01] MEDS: CHOLECALCIFEROL 1000 INTER.UNIT TAB PO SCH (09:14)
[2016-07-01] MEDS: ALLOPURINOL 100 MG TAB PO SCH ×2 (09:14→20:22)
[2016-07-01] MEDS: GABAPENTIN 100 MG CAP PO SCH ×2 (09:14→20:23)
[2016-07-01] MEDS: CALCITRIOL 0.25 MCG CAP PO SCH (09:15)
[2016-07-01] MEDS: INSULIN GLARGINE SOLOSTAR 100 UNITS/ML 3 ML PEN SC SCH (09:20)
[2016-07-01 10:55] LABS: HEMATOCRIT 26.9 % (37-47)
--- NOTE | 2016-07-01 11:03 | Pharmacy Progress Note ---
Glycemic Control: Progress Nt Date of Service Jul 01, 2016. Scope Glycemic Pharmacist consulted by Dr Park on 06/30/16 for glycemic control and to write orders per [facility] inpatient glycemic control protocol. Objective Accuchecks BSG (last 24hrs): Test 06/30/16 19:00 06/30/16 20:46 07/01/16 04:39 07/01/16 06:35 Bedside Glucose 126 mg/dl (70-90) 249 mg/dl (70-90) 135 mg/dl (70-90) Random Glucose 119 mg/dl (70-99) Laboratory Data (last 24hrs) Test 07/01/16 04:39 Anion Gap 6.0 mmol/L BUN/Creatinine Ratio 41.3 Blood Urea Nitrogen 54 mg/dl Creatinine 1.30 mg/dl Hemoglobin A1c 6.9 % Potassium Level 3.6 mmol/L Sodium Level 146 mmol/L White Blood Count 7.05 K/uL HbA1c: Test 07/01/16 04:39 Hemoglobin A1c 6.9 % (4.5-5.6) H Recent Pertinent Medications Outpatient Anti-diabetic Regimen: * Glipizide 5mg PO QAM The patient is currently ordered: * Basal insulin: Lantus based on BSG every morning - If BSG 120mg/dl or below --> do not give Lantus - If BSG 121-179mg/dl --> Give Lantus 5 units - If BSG 180mg/dl or above --> Give Lantus 10 units * Correctional Insulin: Novolog Correction per scale ACHS Goal Range: Low 100 mg/dL - High 140 mg/dL Correction Factor: 40 mg/dL/unit * Prandial insulin: Per carb ratio of 1 unit per 13 grams CHO consumed * Oral Agents: On hold for admission Risk Factors for Insulin Resistance: * Illness/Stress * Protonix drip (mixed in dextrose) Risk Factors for Insulin Sensitivity: * Advanced age * Sulfonylurea - taken 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 This value is outdated, however, will not re-order as pt received blood transfusion this evening which would make new result unreliable. * Pt is maintained on glipizide as an outpatient - last taken this morning. Sulfonylureas can induce long standing hypoglycemia with acute renal impairment on top of decreased PO intake. Will have to monitor for hypoglycemia closely. * Acute renal impairment can lead to increased insulin sensitivity d/t pharmacodynamic changes - response is greater with a given dose of insulin * Patient is insulin naive and has potential for hypoglycemia - will dose insulin very conservatively and titrate base on BSG trends * Use weight based dosing with minimal stressors * Use "BSG range based" basal insulin dosing- pt likely still has glipizide on board and may not require basal insulin while BSGs close to goal range. * Keep goal range high to help prevent hypo when BSG below goal range (CHO coverage subtracted off) * ADA & AACE recommend a goal blood sugar range 140-180 mg/dl for the majority of critically ill & non-critically ill patients. However, more stringent targets may be selected in individual cases. 07/01/16 * Patient is NPO with plans to go to OR today * Fasting BSG 135 mg/dL this AM * Patient received 5 units of Lantus this AM and 0 units of Novolog * As diet is advanced, adjustments will be made * For now, continue current regimen and reassess in the AM PLAN FOR INPATIENT GLYCEMIC CONTROL: * Hold outpatient oral diabetes medications (glipizide) * Continue Basal insulin with Lantus based on fasting BSG * If BSG 120mg/dl or below --> do not give Lantus * If BSG 121-179mg/dl --> Give Lantus 5 units * If BSG 180mg/dl or above --> Give Lantus 10 units * Continue Correctional Insulin with NOVOLOG per scale ACHS or Q6hrs while NPO * Increase Goal Range: Low 140 mg/dL - High 180 mg/dL * Correction Factor: 40 mg/dL/unit * Nutritional / Prandial insulin per carb ratio of 1 unit per 13 grams CHO consumed * Please note that the plan above was derived based on current level of insulin resistance and hospital stress. These recommendations are appropriate for inpatient admission only. Plan of care upon discharge will need to be reassessed to avoid potential outpatient hypo/hyperglycemia. Thank you.
--- NOTE | 2016-07-01 11:17 | Surgery Consultation ---
Consultation Date of Service Jul 01, 2016. Chief Complaint History of DVT with GI bleeding History of Present Illness The patient is a 85 year old female who developed a right leg DVT last September. This occurred while undergoing hormone therapy per [employer]. She was treated for the DVT and then placed on coumadin. She still remains on coumadin. She now presents with GI bleeding. She does complain of chronic swelling of her legs. Vitals Vital Signs Past 12 Hours Date Time Temp Pulse Resp B/P Pulse Ox O2 Delivery O2 Flow Rate FiO2 07/01/16 11:02 36.3 73 18 132/73 Room Air 07/01/16 09:40 36.3 80 18 132/73 94 07/01/16 08:30 36.4 65 18 121/73 94 07/01/16 08:00 Room Air 07/01/16 07:40 36.5 73 20 121/68 95 Room Air 07/01/16 07:30 36.5 73 18 121/68 95 07/01/16 07:15 36.5 65 16 117/70 95 07/01/16 07:15 36.5 117 16 117/70 95 07/01/16 07:00 36.5 67 18 119/70 95 07/01/16 06:35 36.4 66 18 109/68 100 2.0 07/01/16 04:02 Nasal Cannula 2.0 07/01/16 03:45 36.4 69 20 125/71 99 Nasal Cannula 2.0 07/01/16 00:02 Nasal Cannula 2.0 06/30/16 23:30 36.5 61 20 113/76 100 2.0 Allergies Coded Allergies: Acetaminophen (Verified Allergy, Severe, SHORTNESS OF BREATH, 06/30/16) Dextromethorphan (Verified Allergy, Severe, SHORTNESS OF BREATH, 06/30/16) Doxylamine (Verified Allergy, Severe, SHORTNESS OF BREATH, 06/30/16) Ethanol (Verified Allergy, Severe, SHORTNESS OF BREATH, 06/30/16) Pseudoephedrine (Verified Allergy, Severe, SHORTNESS OF BREATH, 06/30/16) Sulfa Antibiotics (Verified Allergy, Unknown, "SULFA DRUGS": HIVES, 06/30/16 ) Home Medications Scheduled Allopurinol (Zyloprim), 100 MG PO BID Aspirin (Aspir-81), 81 MG PO HS Calcitriol (Calcitriol), 0.25 MCG PO DAILY Cholecalciferol (Vitamin D3), 1,000 UNITS PO DAILY Furosemide (Lasix), 80 MG PO QAM Furosemide (Lasix), 40 MG PO 4PM Gabapentin (Neurontin), 100 MG PO BID Glipizide (Glipizide), 5 MG PO QAM Metoprolol Succ (Toprol Xl) (Toprol-Xl), 50 MG PO QAM Oxygen (Oxygen), 2 LITERS NA HS Pantoprazole (Protonix), 40 MG PO DAILY Pravastatin Sod (Pravastatin Sodium), 40 MG PO HS Warfarin Sodium (Coumadin), 4 MG PO 2XWK Warfarin Sodium (Coumadin), 2 MG PO 5XWK Scheduled PRN Fluticasone Prop/Salmeterol (Advair Diskus 250/50 60 Dose), 1 PUFF INH BID PRN for PRN Ipratropium-Albuterol (Combivent Respimat), 2 PUFFS INH QID PRN for SOB/Wheezing Problem List Medical Problems: (1) Benign hypertension (2) Chronic obstructive lung disease (3) CKD (chronic kidney disease), stage IV (4) Congestive heart failure with left ventricular diastolic dysfunction (5) Diabetes mellitus type 2 (6) Dyslipidemia (7) GI bleed (8) Gout (9) History of peptic ulcer disease (10) Idiopathic peripheral neuropathy (11) Nocturnal hypoxia (12) Peripheral venous insufficiency (13) Sensorineural hearing loss, bilateral (14) Uterine cancer Surgical Problems: (1) Status post appendectomy (2) Status post left hip replacement (3) Status post parathyroidectomy Surgical / Medical History Hx Cardiac Surgery: No Hx Cancer Surgery: No Hx Thoracic Surgery: No Hx Orthopedic: Yes (L ELISE) Hx Urinary Tract Surgery: Yes (bladder) Past Medical/Surgical History: Cancer (uterine), CHF, COPD, Diabetes, High Cholesterol, Hypertension, Kidney Disease Family History Colon cancer UNCLE Heart disease MOTHER Lung cancer BROTHER Uterine cancer DAUGHTER DAUGHTER Social History Smoking Status: Never Smoker Hx Tobacco Use In Past Year?: No Hx Alcohol Use - Type & Amnt: No Hx Substance Use -Type & Amnt: No Review of Systems Constitutional: No chills, No diaphoresis, No fatigue, No fever, No malaise, No problem reported, No sweats, No weakness, No weight gain, No weight loss Respiratory: + short of breath Cardiovascular: No chest pain, No chest pressure, No chest tightness, No cyanosis, No diaphoresis, No edema, No intermittent claudication, No lightheadedness, No mumur, No orthopnea, No palpitations, No paroxysmal nocturnal dyspnea, No problem reported, No syncope Gastrointestinal: No abdominal pain, No anorexia, No appetite changes, No belching, No constipation, No diarrhea, No dysphagia, No flatulence, No food intolerance, No heartburn, No hematemesis, No hematochezia, No hemorrhoids, No indigestion, No nausea, No problem reported, No rectal bleeding, No stool changes, No vomiting Genitourinary - Female: No breast problems, No dysmenorrhea, No dysuria, No hematuria, No hesitancy, No menorrhagia, No metrorrhagia, No , No problem reported, No rash, No urinary frequency, No urinary incontinence, No urinary retention, No urinary urgency, No vaginal bleeding, No vaginal discharge , No vaginal itching, No vulvadynia Musculoskeletal: No back pain, No gout, No joint pain, No joint swelling, No muscle pain, No muscle stiffness, No muscle weakness, No neck pain, No problem reported Neurologic: No LOC, No dizziness, No headache, No lethargy, No memory loss, No numbness, No paresthesia, No pre-existing deficit, No problem reported, No seizures, No tics, No tingling, No tremors, No vertigo, No weakness Psychiatric: No alcohol abuse, No anxiety, No auditory hallucinations, No depression, No drug abuse, No homicidal ideation, No mood changes, No problem reported, No suicidal ideation, No visual hallucinations Physical Exam Constitutional: General Apperance: overweight Level of Distress: NAD Ambulation: ambulating normally Psychiatric: Mental Status: active & alert, normal mood, normal affect Orientation: oriented except where noted, to time, to place, to person Memory: recent memory normal, remote memory normal Lungs: Auscultation: breath sounds normal Cardiovascular: Heart Auscultation: RRR Peripheral Pulses: Radial Pulse: normal on the left, normal on the right Femoral Pulse: normal on the left, normal on the right Abdomen: Inspection & Palpation: soft Musculoskeletal: normal Extremities: Upper Right: no cyanosis, no edema, no varicosities, no palpable cord, no clubbing, no ulcers, no mottling Upper Left: no cyanosis, no edema, no palpable cord, no clubbing, no ulcers , no mottling Lower Right: edema Lower Left: edema Neurologic: Cranial Nerves: grossly intact Sensation: grossly intact Assessment and Plan Imp: History of DVT GI bleed Uterine cancer Plan: There is no indication for a filter in this patient. Her DVT of her right lower extremity was last September and associated with hormone therapy for uterine cancer. She was placed on Coumadin at that time and is still on it. Her USN of the venous system of her lower extremities show chronic changes in the right lower extremity from her previous DVT. No acute clot was seen in either lower extremity. I would stop her coumadin being that it is almost 9 months since her DVT which was her first bout of DVT and associated with hormone therapy. Thank you very much for letting me participate in the care of this patient.
[2016-07-01] MEDS ORDERED: CEFAZOLIN IV 2,000 MG in DEXTROSE 5% 50ML 50 ML IV SCH (11:30)
[2016-07-01] MEDS ORDERED: PROPOFOL IV EMULSION 10 MG/ML 20 ML VIAL IV ONE (12:04)
[2016-07-01] MEDS ORDERED: LIDOCAINE HCL 2% 2 ML VIAL (20MG/ML) ONE (12:04)
--- NOTE | 2016-07-01 12:30 | GI REPORT ---
Procedure Date: 07/01/2016 12:11 PM Procedure: Upper GI endoscopy Indications: Melena Medicines: See the Anesthesia note for documentation of the administered medications Complications: No immediate complications. Estimated Blood Loss: Estimated blood loss: none. Procedure: Pre-Anesthesia Assessment: - ASA Grade Assessment: III - A patient with severe systemic disease. After obtaining informed consent, the endoscope was passed under direct vision. Throughout the procedure, the patient's blood pressure, pulse, and oxygen saturations were monitored continuously. The scope was introduced through the mouth, and advanced to the second part of duodenum. The upper GI endoscopy was accomplished without difficulty. The patient tolerated the procedure well. Findings: The examined esophagus was normal. 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 There was diffuse atrophy and pallor of the mucosa of the body. A few random biopsies were done from the stomach. There was a 3-4 inflammatory appearing nodule in the antrum with a small ulcer and white clot. This was removed witha hot snare, and site was clipped. There wasa 4 mm umbilicated nodule in the pre-pyloric antrum, possibly a pancreatic rest. The duodenum was normal. There was no clear source of UGIB on EGD. Recommendation: - Discharge patient to floor. Consider colonoscopy tomorrow. Davey Sheridan M.D. Davey Sheridan MD 07/01/2016 12:29:59 PM This report has been signed electronically. Note Initiated On: 07/01/2016 12:11 PM I attest to the content of the Intraoperative Record and orders documented therein, exceptions below
[2016-07-01] MEDS ORDERED: PHENYLEPHRINE 100MCG/ML 5ML SYR ONE (12:34)
--- NOTE | 2016-07-01 14:03 | Anesthesiology Progress Note ---
Anesthesia Post Op Note Date & Time Jul 01, 2016 at 14:04 Vital Signs Pain Intensity: 0.0 Vital Signs Past 12 Hours Date Time Temp Pulse Resp B/P Pulse Ox O2 Delivery O2 Flow Rate FiO2 07/01/16 13:12 Room Air 07/01/16 12:52 69 16 139/63 94 Room Air 07/01/16 12:35 67 16 110/50 95 Room Air 07/01/16 12:31 72 20 136/59 94 Room Air 07/01/16 11:38 36.6 71 20 151/58 95 Room Air 07/01/16 11:13 36.4 65 18 133/67 96 Room Air 07/01/16 11:02 36.3 73 18 132/73 Room Air 07/01/16 09:40 36.3 80 18 132/73 94 07/01/16 08:30 36.4 65 18 121/73 94 07/01/16 08:00 Room Air 07/01/16 07:40 36.5 73 20 121/68 95 Room Air 07/01/16 07:30 36.5 73 18 121/68 95 07/01/16 07:15 36.5 65 16 117/70 95 07/01/16 07:15 36.5 117 16 117/70 95 07/01/16 07:00 36.5 67 18 119/70 95 07/01/16 06:35 36.4 66 18 109/68 100 2.0 07/01/16 04:02 Nasal Cannula 2.0 07/01/16 03:45 36.4 69 20 125/71 99 Nasal Cannula 2.0 Notes Mental Status: alert / awake / arousable, participated in evaluation Pt Amnestic to Procedure: Yes Nausea / Vomiting: adequately controlled Pain: adequately controlled Airway Patency, RR, SpO2: stable & adequate BP & HR: stable & adequate Hydration State: stable & adequate Anesthetic Complications: no major complications apparent
[2016-07-01] MEDS ORDERED: LAVAGE SOLUTION 4000ML PO SCH (15:00)
[2016-07-01] MEDS ORDERED: BISACODYL 5 MG TABEC PO ONE (15:00)
[2016-07-01] MEDS ORDERED: FUROSEMIDE 40 MG TAB PO ONE (17:00)
[2016-07-01 17:20] LABS: HEMATOCRIT 27.4 % (37-47)
--- NOTE | 2016-07-01 18:12 | Progress Note ---
Medicine Progress Note Date & Time of Visit: Jul 01, 2016 at 18:01. Subjective Patient seen and examined. Had EGD earlier today. Tolerated procedure well. No complications. No obvious source of bleeding. No BM's today. Denies abdominal pain. Objective Last 8 Hrs Date Time Temp Pulse Resp B/P Pulse Ox O2 Delivery O2 Flow Rate FiO2 07/01/16 16:00 Room Air 07/01/16 15:37 36.8 59 18 156/79 97 07/01/16 13:50 77 95 07/01/16 13:12 Room Air 07/01/16 12:52 69 16 139/63 94 Room Air 07/01/16 12:35 67 16 110/50 95 Room Air 07/01/16 12:31 72 20 136/59 94 Room Air 07/01/16 11:38 36.6 71 20 151/58 95 Room Air 07/01/16 11:13 36.4 65 18 133/67 96 Room Air 07/01/16 11:02 36.3 73 18 132/73 Room Air Physical Exam: General-awake; alert; NAD Eyes-EOMI; no scleral icterus Neck-no stridor; trachea midline Lungs-CTA bilaterally; no wheezes/crackles Heart-RRR; no m/r/g Abdomen-soft; NTND; nBS Extremities-2+ pitting edema bilateral LE; no deformity Neuro-no gross focal deficits Laboratory Results: Last 24 Hours Test 06/30/16 19:00 06/30/16 20:22 06/30/16 20:46 07/01/16 04:39 Bedside Glucose 126 mg/dl 249 mg/dl Hemoglobin 7.1 g/dL 7.2 g/dL Hematocrit 23.4 % 23.1 % White Blood Count 7.05 K/uL Red Blood Count 2.66 M/uL Mean Corpuscular Volume 86.8 fL Mean Corpuscular Hemoglobin 27.1 pg Mean Corpuscular Hemoglobin Concent 31.2 g/dl RDW Standard Deviation 53.3 fL RDW Coefficient of Variation 16.7 % Platelet Count 282 K/uL Mean Platelet Volume 9.4 fL Nucleated RBC Absolute Count (auto) 0.02 K/uL Nucleated Red Blood Cells % 0.2 % Prothrombin Time 15.8 SECONDS Prothromb Time International Ratio 1.5 Sodium Level 146 mmol/L Potassium Level 3.6 mmol/L Chloride Level 105 mmol/L Carbon Dioxide Level 35 mmol/L Anion Gap 6.0 mmol/L Blood Urea Nitrogen 54 mg/dl Creatinine 1.30 mg/dl Est Creatinine Clear Calc Drug Dose 39.1 ml/min Estimated GFR () 42.7 Estimated GFR (Non- 36.9 BUN/Creatinine Ratio 41.3 Random Glucose 119 mg/dl Estimated Average Glucose 151 mg/dl Hemoglobin A1c 6.9 % Calcium Level 8.2 mg/dl Magnesium Level 2.2 mg/dl Test 07/01/16 06:35 07/01/16 10:40 07/01/16 10:56 07/01/16 16:21 Bedside Glucose 135 mg/dl 157 mg/dl 219 mg/dl Hemoglobin 8.5 g/dL Hematocrit 26.9 % Test 07/01/16 17:12 Hemoglobin 8.6 g/dL Hematocrit 27.4 % Assessment & Plan 85 y/o F with melena x two weeks and symptomatic anemia. Melena - GI consulted - Hgb ~6 on admission - transfused 3units PRBC's with Hgb stable ~8's - EGD done today with no active source of bleeding identified - plan for colonoscopy tomorrow - continue PPI drip Acute anemia - 2/2 GI loss - transfused with 3units PRBC's with Hgb stable ~8's Chronic diastolic heart failure - received IV Lasix with blood transfusions - given pm dose of Lasix today - plan to resume home Lasix dosing after colonoscopy h/o provoked DVT - LE doppler showing chronic DVT - Vascular surgery consulted - no indication for anticoagulation or IVC filter 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 - follow with Oncology as outpatient Diabetes II - hold glipizide - hemoglobin A1c 7.8 as of September 2015 - glycemic pharmacy consulted - continue insulin therapy HTN - normotensive - hold metoprolol in the setting of GI bleed - Lasix as outlined above COPD - currently stable - continue her Advair BID and Combivent QID PRN Chronic kidney disease stage IV - baseline creat 1.5 DVT prophylaxis: - SCDs for now because of GI bleed Consultants: Gastroenterology Vascular surgery Procedures: EGD The examined esophagus was normal. 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 There was diffuse atrophy and pallor of the mucosa of the body. A few random biopsies were done from the stomach. There was a 3-4 inflammatory appearing nodule in the antrum with a small ulcer and white clot. This was removed witha hot snare, and site was clipped. There was a 4 mm umbilicated nodule in the pre-pyloric antrum, possibly a pancreatic rest. The duodenum was normal. There was no clear source of UGIB on EGD. Current Inpatient Medications: Current Inpatient Medications Medications (Trade) Dose Ordered Sig/Champ Route Start Time Stop Time Status Last Admin Dose Admin Ondansetron HCl (Zofran Inj) 4 mg Q6H PRN IV 06/30/16 16:45 07/30/16 16:44 Polyethylene (Miralax Powder Packet) 17 gm DAILY PRN PO 06/30/16 16:45 07/30/16 16:44 Insulin Aspart (novoLOG ASPART) SLIDING SCALE If C... ACHS SC 06/30/16 18:00 07/30/16 17:59 07/01/16 17:06 4 UNITS Glucose (Glucose 40% Gel) 15-30 GRAMS 15 GRAMS... UD PRN PO 06/30/16 16:45 07/30/16 16:44 Glucose (Glucose Chew Tab) 4-8 Tablets 4 Tabl... UD PRN PO 06/30/16 16:45 07/30/16 16:44 Dextrose (Dextrose 50% 50ML Syringe) 25-50ML OF 50% DW IV FOR... UD PRN IV 06/30/16 16:45 07/30/16 16:44 Glucagon (Glucagon Inj) 1 mg UD PRN SQ 06/30/16 16:45 07/30/16 16:44 Miscellaneous Information (Consult Glycemic Management Pharmacy) 1 ea UD PRN N/A 06/30/16 17:08 07/30/16 17:07 Allopurinol (Zyloprim Tab) 100 mg BID PO 06/30/16 21:00 07/30/16 20:59 07/01/16 09:14 100 MG Calcitriol (Rocaltrol Cap) 0.25 mcg DAILY PO 07/01/16 09:00 07/31/16 08:59 07/01/16 09:15 0.25 MCG Cholecalciferol (Vitamin D Tab) 1,000 inter.unit DAILY PO 07/01/16 09:00 07/31/16 08:59 07/01/16 09:14 1,000 INTER.UNIT Salmeterol Xinafoate/ Fluticasone (Advair Diskus 250/50 Inh) 1 puff BID PRN INH 06/30/16 17:15 07/30/16 17:14 Gabapentin (Neurontin Cap) 100 mg BID PO 06/30/16 21:00 07/30/16 20:59 07/01/16 09:14 100 MG Albuterol/ Ipratropium (Combivent Respimat Inh) 2 puffs QID PRN INH 06/30/16 17:15 07/30/16 17:14 Pravastatin Sodium 40 mg 40 mg HS PO 06/30/16 21:00 07/30/16 20:59 06/30/16 20:52 40 MG Pantoprazole Sodium/Dextrose (Protonix Inj/D5 100ml) 100 ml @ 20 mls/hr Q5H IV 06/30/16 19:45 07/30/16 19:44 07/01/16 14:59 20 MLS/HR Insulin Glargine (Lantus Solostar Pen) SEE PROTOCOL TEXT DAILY SC 07/01/16 09:00 07/31/16 08:59 07/01/16 09:20 5 UNIT Hydralazine HCl (Apresoline Tab) 10 mg Q6H PRN PO 06/30/16 23:00 07/30/16 22:59 Polyethylene Glycol/ Electrolytes (Golytely Soln) 8 dose TODAY@1500 PO 07/01/16 15:00 07/01/16 23:59 07/01/16 14:59 8 DOSE
[2016-07-01] MEDS: PRAVASTATIN SOD 40 MG TAB PO SCH (20:22)
[2016-07-02 00:54] VITALS: BP 124/57; PULSE 78; TEMP 36.5; O2SAT 95
[2016-07-02] MEDS: PANTOprazole INJ 40 MG in DEXTROSE 5% 100ML IV SCH ×4 (01:32→18:49)
[2016-07-02] MEDS: INSULIN ASPART 100 UNITS/ML 3 ML PEN SC SCH ×4 (06:30→20:58)
[2016-07-02 07:08] VITALS: BP 125/45; PULSE 89; TEMP 36.4; O2SAT 93
[2016-07-02 07:54] LABS: HEMATOCRIT 26.2 % (37-47); MEAN CELL VOLUME 85.9 fL (80-100); MEAN CORPUSCULAR HEMOGLOBIN 26.9 pg (25-34); MEAN CORPUSCULAR HGB CONC 31.3 g/dl (32-36); MEAN PLATELET VOLUME 9.3 fL (7.4-10.4); PLATELET COUNT 286 K/uL (130-400); RED BLOOD COUNT 3.05 M/uL (4.2-5.4); WHITE BLOOD COUNT 7.68 K/uL (4.8-10.8)
[2016-07-02] MEDS: CALCITRIOL 0.25 MCG CAP PO SCH (07:56)
[2016-07-02] MEDS: CHOLECALCIFEROL 1000 INTER.UNIT TAB PO SCH (07:56)
[2016-07-02] MEDS: GABAPENTIN 100 MG CAP PO SCH ×2 (07:56→19:41)
[2016-07-02] MEDS: ALLOPURINOL 100 MG TAB PO SCH ×2 (07:56→19:41)
[2016-07-02 07:59] LABS: INR 1.2 (0.9-1.1)
[2016-07-02 08:00] VITALS: O2SAT 93
[2016-07-02] MEDS: INSULIN GLARGINE SOLOSTAR 100 UNITS/ML 3 ML PEN SC SCH (08:00)
[2016-07-02 08:23] LABS: BUN/CREATININE RATIO 34.8 (10-20); CALCIUM 8.3 mg/dl (8.5-10.1); CREATININE 1.1 mg/dl (0.60-1.20); POTASSIUM 3.6 mmol/L (3.5-5.1)
[2016-07-02] MEDS ORDERED: LIDOCAINE HCL 2% 2 ML VIAL (20MG/ML) ONE (10:51)
[2016-07-02] MEDS ORDERED: PROPOFOL IV EMULSION 10 MG/ML 20 ML VIAL IV ONE (10:51)
--- NOTE | 2016-07-02 11:49 | GI REPORT ---
Procedure Date: 07/02/2016 10:59 AM Procedure: Colonoscopy Indications: Melena Medicines: See the Anesthesia note for documentation of the administered medications Complications: No immediate complications. Estimated Blood Loss: Estimated blood loss: none. Procedure: Pre-Anesthesia Assessment: - ASA Grade Assessment: IV - A patient with severe systemic disease that is a constant threat to life. - After reviewing the risks and benefits, the patient was deemed in satisfactory condition to undergo the procedure. After I obtained informed consent, the scope was passed under direct vision. Throughout the procedure, the patient's blood pressure, pulse, and oxygen saturations were monitored continuously. The scope was introduced through the anus and advanced to the terminal ileum. The colonoscopy was performed without difficulty. The patient tolerated the procedure well. The quality of the bowel preparation was good. Findings: The perianal and digital rectal examinations were normal. Multiple small and large-mouthed diverticula were found in the entire colon. A 10 mm polyp was found in the transverse colon. The polyp was sessile. The polyp was removed with a saline injection-lift technique using a hot snare. Resection and retrieval were complete. A 3 mm polyp was found in the ascending colon. The polyp was sessile. The polyp was removed with a cold snare. Resection and retrieval were complete. There was red blood and clot found throughout the colon. No source of bleeding was identified. The Ileum was briefly intubated. There was a small amount of coffee ground material in the ileum, but no red blood. Impression: - Diverticulosis in the entire examined colon. - One 10 mm polyp in the transverse colon, removed using injection-lift and a hot snare. Resected and retrieved. - One 3 mm polyp in the ascending colon, removed with a cold snare. Resected and retrieved. - Dark blood throughout the entire colon. Recommendation: - Return to floor. Bleeding scan. Davey Sheridan M.D. Davey Sheridan MD 07/02/2016 11:49:19 AM This report has been signed electronically. Note Initiated On: 07/02/2016 10:59 AM I attest to the content of the Intraoperative Record and orders documented therein, exceptions below
[2016-07-02] MEDS ORDERED: PHENYLEPHRINE 100MCG/ML 5ML SYR ONE (11:53)
--- NOTE | 2016-07-02 12:25 | Anesthesiology Progress Note ---
Anesthesia Post Op Note Date & Time Jul 02, 2016 at 12:23 Vital Signs Pain Intensity: 0.0 Vital Signs Past 12 Hours Date Time Temp Pulse Resp B/P Pulse Ox O2 Delivery O2 Flow Rate FiO2 07/02/16 12:09 80 20 127/72 100 Nasal Cannula 07/02/16 11:46 83 18 115/58 96 Mask 7 07/02/16 10:27 36.2 85 20 157/72 94 Room Air 07/02/16 08:00 93 Room Air 07/02/16 07:08 36.4 89 20 125/45 93 Room Air 07/02/16 00:54 36.5 78 20 124/57 95 Room Air Notes Mental Status: alert / awake / arousable, participated in evaluation Pt Amnestic to Procedure: Yes Nausea / Vomiting: adequately controlled Pain: adequately controlled Airway Patency, RR, SpO2: stable & adequate BP & HR: stable & adequate, see Notes Hydration State: stable & adequate Anesthetic Complications: no major complications apparent The patient was noted to possibly go into afib during the procedure. Her blood pressure and heart rate remained stable. She then was noted to flip back to a sinus rhythm. An EKG was done in PACU that showed SR with PACs rate 87. The patient is awake and comfortable and her vital signs are all stable in the PACU. I spoke to Dr. Hill about the patient's rhythm and she was okay with following the patient on the floor.
[2016-07-02 13:00] VITALS: BP_SYST 171; BP_SYST 202; BP_DIAS 117; BP_DIAS 80; PULSE 81; TEMP 36.4; O2SAT 93
--- NOTE | 2016-07-02 14:25 | Pharmacy Progress Note ---
Glycemic Control: Progress Nt Date of Service Jul 02, 2016. Scope Glycemic Pharmacist consulted by Dr Park on 06/30/16 for glycemic control and to write orders per [facility] inpatient glycemic control protocol. Objective Accuchecks BSG (last 24hrs): Test 07/01/16 16:21 07/01/16 20:33 07/02/16 07:00 07/02/16 13:13 Bedside Glucose 219 mg/dl (70-90) 90 mg/dl (70-90) 131 mg/dl (70-90) Random Glucose 148 mg/dl (70-99) Laboratory Data (last 24hrs) Test 07/02/16 07:00 Anion Gap 9.0 mmol/L BUN/Creatinine Ratio 34.8 Blood Urea Nitrogen 38 mg/dl Creatinine 1.10 mg/dl Potassium Level 3.6 mmol/L Sodium Level 145 mmol/L White Blood Count 7.68 K/uL HbA1c: Test 07/01/16 04:39 Hemoglobin A1c 6.9 % (4.5-5.6) H Recent Pertinent Medications Outpatient Anti-diabetic Regimen: * Glipizide 5mg PO QAM The patient is currently ordered: * Basal insulin: Lantus based on BSG every morning - If BSG 120mg/dl or below --> do not give Lantus - If BSG 121-179mg/dl --> Give Lantus 5 units - If BSG 180mg/dl or above --> Give Lantus 10 units * Correctional Insulin: Novolog Correction per scale ACHS Goal Range: Low 100 mg/dL - High 140 mg/dL Correction Factor: 40 mg/dL/unit * Prandial insulin: Per carb ratio of 1 unit per 13 grams CHO consumed * Oral Agents: On hold for admission Risk Factors for Insulin Resistance: * Illness/Stress * Protonix drip (mixed in dextrose) Risk Factors for Insulin Sensitivity: * Advanced age * Sulfonylurea - taken INSIDE [employer] * Acute renal impairment * NPO this morning, now back to samia, Type 2 DM Assessment & Plan ASSESSMENT: 06/30/16 * 85yo T2DM female with adequate outpatient control per recent A1c from September 2015. This value is outdated, however, will not re-order as pt received blood transfusion this evening which would make new result unreliable. * Pt is maintained on glipizide as an outpatient - last taken this morning. Sulfonylureas can induce long standing hypoglycemia with acute renal impairment on top of decreased PO intake. Will have to monitor for hypoglycemia closely. * Acute renal impairment can lead to increased insulin sensitivity d/t pharmacodynamic changes - response is greater with a given dose of insulin * Patient is insulin naive and has potential for hypoglycemia - will dose insulin very conservatively and titrate base on BSG trends * Use weight based dosing with minimal stressors * Use "BSG range based" basal insulin dosing- pt likely still has glipizide on board and may not require basal insulin while BSGs close to goal range. * Keep goal range high to help prevent hypo when BSG below goal range (CHO coverage subtracted off) * ADA & AACE recommend a goal blood sugar range 140-180 mg/dl for the majority of critically ill & non-critically ill patients. However, more stringent targets may be selected in individual cases. 07/01/16 * Patient is NPO with plans to go to OR today * Fasting BSG 135 mg/dL this AM * Patient received 5 units of Lantus this AM and 0 units of Novolog * As diet is advanced, adjustments will be made * For now, continue current regimen and reassess in the AM 07/02/16 * Patient was NPO this morning for colonoscopy, so I held patient's Lantus. BSGs at goal. Could give supplemental dose of Lantus, but I will just wait until patient has her dose tomorrow to prevent any hypoglycemia. PLAN FOR INPATIENT GLYCEMIC CONTROL: * Hold outpatient oral diabetes medications (glipizide) * HOLD Lantus this AM then * Continue Basal insulin with Lantus based on fasting BSG QAM starting tomorrow morning * If BSG 120mg/dl or below --> do not give Lantus * If BSG 121-179mg/dl --> Give Lantus 5 units * If BSG 180mg/dl or above --> Give Lantus 10 units * Continue Correctional Insulin with NOVOLOG per scale ACHS or Q6hrs while NPO * Increase Goal Range: Low 140 mg/dL - High 180 mg/dL * Correction Factor: 40 mg/dL/unit * Prandial insulin: Per carb ratio of 1 unit per 13 grams CHO consumed * Please note that the plan above was derived based on current level of insulin resistance and hospital stress. These recommendations are appropriate for inpatient admission only. Plan of care upon discharge will need to be reassessed to avoid potential outpatient hypo/hyperglycemia. Thank you.
[2016-07-02 15:43] VITALS: BP 172/79; PULSE 110; TEMP 36.7; O2SAT 90
--- NOTE | 2016-07-02 18:39 | DIAGNOSTIC IMAGING REPORT ---
NUCLEAR GI BLEEDING SCAN CLINICAL HISTORY: Rectal bleeding. COMPARISON STUDY: No priors.. TECHNIQUE: Following the IV administration of 29.8 mCi of technetium 99m UltraTag labeled red blood cells, dynamic nuclear bleeding scan was performed. Anterior flow images were obtained every 2 seconds for a total 58 seconds. Anterior static images were obtained every 5 minutes for a total of 60 minutes. FINDINGS: There is expected tracer activity within the liver, spleen, and abdominal aorta. Best seen on the dynamic images, there is faint abnormal tracer activity identified consistent with active GI bleeding. This projects over the mid pelvis and the left lower quadrant, and could be related to the small bowel or the distal colon. IMPRESSION: Active GI bleeding is identified projecting over the mid pelvis and the left lower quadrant. This could be located within small bowel loops or the left colon. Electronically signed by: Dean Wiggins M.D. 07/02/2016 6:38 PM Dictated Date/Time: 07/02/2016 6:33 PM
[2016-07-02] MEDS ORDERED: INSDGIPEN SC (19:41)
[2016-07-02] MEDS ORDERED: NVLGIPEN SC (19:41)
[2016-07-02] MEDS: PRAVASTATIN SOD 40 MG TAB PO SCH (19:41)
--- NOTE | 2016-07-02 19:45 | Discharge Instructions ---
Discharge Instructions Admission Reason for Admission: Gi Bleed Discharge Discharge Diagnosis / Problem: GI Bleed, likely small bowel etiology Discharge Goals Goal(s): Improve disease control, Diagnostic testing Activity Recommendations Activity Level: Up Ad Anita . Additional Information Patient informed of condition: Yes Advance Directives: No DNR: No Level of Care: Other Communicable Disease: No Prognosis: Stable Castelan Catheter: No Instructions / Follow-Up Instructions / Follow-Up Patient's antihypertensives and diuretics have been held in light of active GI bleed. Aspirin is also on hold. Coumadin has been discontinued given no clinical indication. Current Hospital Diet Patient's current hospital diet: Clear Liquid Diet, Diabetes Type 2 Diet Discharge Diet Recommended Diet: Clear Liquid Diet, Diabetes Type 2 Diet Procedures Procedures Performed: COLONOSOCPY, POLYPECTOMY, EGD, NM GI BLEED SCAN Pending Studies Studies pending at discharge: yes List of pending studies: Pathology from polypectomy Laboratory Results Hemoglobin A1c Test 07/01/16 04:39 Range/Units Estimated Average Glucose 151 mg/dl Hemoglobin A1c 6.9 H 4.5-5.6 % Medical Emergencies . Who to Call and When: Medical Emergencies: If at any time you feel your situation is an emergency, please call 911 immediately. . Non-Emergent Contact Non-Emergency issues call your: Primary Care Provider . . "Provider Documentation" section prepared by Crystal Saenz. Core Measure Problem Core Measures: None
[2016-07-02] MEDS ORDERED: [UNRECOGNIZED DRUG - OTHER] IV (19:46)
--- NOTE | 2016-07-02 20:31 | Progress Note ---
Medicine Progress Note Date & Time of Visit: Jul 02, 2016 at 20:23. Subjective Patient seen and examined. Tolerated colonoscopy without incident this morning. No active source noted, but blood noted throughout entire colon. NM GI bleed scan with active bleeding noted. D/w GI content director and recommend transfer to [place] for IR evaluation for embolization. D/w patient and she is agreeable to transfer. Objective Last 8 Hrs Date Time Temp Pulse Resp B/P Pulse Ox O2 Delivery O2 Flow Rate FiO2 07/02/16 16:00 Room Air 07/02/16 15:43 36.7 110 16 172/79 90 Room Air 07/02/16 13:00 36.4 81 16 202/117 93 Room Air 171/80 Physical Exam: General-awake; alert; NAD Eyes-EOMI; no scleral icterus Neck-no stridor; trachea midline Lungs-CTA bilaterally; no wheezes/crackles Heart-RRR; no m/r/g Abdomen-soft; NTND; nBS Extremities-1+ pitting edema bilateral LE; no deformity Neuro-no gross focal deficits Laboratory Results: Last 24 Hours Test 07/01/16 20:33 07/02/16 07:00 07/02/16 13:13 07/02/16 18:07 Bedside Glucose 90 mg/dl 131 mg/dl 166 mg/dl White Blood Count 7.68 K/uL Red Blood Count 3.05 M/uL Hemoglobin 8.2 g/dL Hematocrit 26.2 % Mean Corpuscular Volume 85.9 fL Mean Corpuscular Hemoglobin 26.9 pg Mean Corpuscular Hemoglobin Concent 31.3 g/dl RDW Standard Deviation 51.6 fL RDW Coefficient of Variation 16.5 % Platelet Count 286 K/uL Mean Platelet Volume 9.3 fL Prothrombin Time 13.0 SECONDS Prothromb Time International Ratio 1.2 Sodium Level 145 mmol/L Potassium Level 3.6 mmol/L Chloride Level 106 mmol/L Carbon Dioxide Level 30 mmol/L Anion Gap 9.0 mmol/L Blood Urea Nitrogen 38 mg/dl Creatinine 1.10 mg/dl Est Creatinine Clear Calc Drug Dose 46.5 ml/min Estimated GFR () 52.3 Estimated GFR (Non- 45.1 BUN/Creatinine Ratio 34.8 Random Glucose 148 mg/dl Calcium Level 8.3 mg/dl Assessment & Plan 85 y/o F with melena x two weeks and symptomatic anemia. Melena - GI consulted - Hgb ~6 on admission - transfused 3units PRBC's with Hgb stable ~8's - EGD with no active source of bleeding identified - colonoscopy with no active source of bleeding but blood seen throughout entire colon - NM GI bleed scan done and active bleeding noted, most likely in the small intestine - continue PPI drip - transfer to [place] for IR evaluation Acute anemia - 2/2 GI loss - transfused with 3units PRBC's with Hgb stable ~8's Chronic diastolic heart failure - received IV Lasix with blood transfusions - appears euvolemic - given limited PO intake, will hold on resuming home Lasix dosing h/o provoked DVT - LE doppler showing chronic DVT - Vascular surgery consulted - no indication for anticoagulation or IVC filter - warfarin discontinued 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 - follow with Oncology as outpatient Diabetes II - hold glipizide - hemoglobin A1c 7.8 as of September 2015 - glycemic pharmacy consulted - continue insulin therapy HTN - normotensive - hold metoprolol as pressures had been low-normotensive; resume as clinically indicated - Lasix as outlined above COPD - currently stable - continue her Advair BID and Combivent QID PRN Chronic kidney disease stage IV - baseline creat 1.5 DVT prophylaxis: - SCDs for now because of GI bleed Transfer to [place] when bed is available. Consultants: Gastroenterology Vascular surgery Procedures: Bilateral LE Venous Doppler 1. Nonocclusive deep venous thrombus within the right superficial femoral and popliteal veins. This thrombus is age indeterminate but chronic thrombus is favored. 2. No deep venous thrombus within the left lower extremity. 3. Suspected bilateral popliteal cysts. EGD The examined esophagus was normal. 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 There was diffuse atrophy and pallor of the mucosa of the body. A few random biopsies were done from the stomach. There was a 3-4 inflammatory appearing nodule in the antrum with a small ulcer and white clot. This was removed witha hot snare, and site was clipped. There was a 4 mm umbilicated nodule in the pre-pyloric antrum, possibly a pancreatic rest. The duodenum was normal. There was no clear source of UGIB on EGD. Colonoscopy - Diverticulosis in the entire examined colon. - One 10 mm polyp in the transverse colon, removed using injection-lift and a hot snare. Resected and retrieved. - One 3 mm polyp in the ascending colon, removed with a cold snare. Resected and retrieved. - Dark blood throughout the entire colon. NM GI Bleed scan Active GI bleeding is identified projecting over the mid pelvis and the left lower quadrant. This could be located within small bowel loops or the left colon. Current Inpatient Medications: Current Inpatient Medications Medications (Trade) Dose Ordered Sig/Champ Route Start Time Stop Time Status Last Admin Dose Admin Ondansetron HCl (Zofran Inj) 4 mg Q6H PRN IV 06/30/16 16:45 07/30/16 16:44 Polyethylene (Miralax Powder Packet) 17 gm DAILY PRN PO 06/30/16 16:45 07/30/16 16:44 07/02/16 11:02 17 GM Insulin Aspart (novoLOG ASPART) SLIDING SCALE If C... ACHS SC 06/30/16 18:00 07/30/16 17:59 07/02/16 18:12 4 UNITS Glucose (Glucose 40% Gel) 15-30 GRAMS 15 GRAMS... UD PRN PO 06/30/16 16:45 07/30/16 16:44 Glucose (Glucose Chew Tab) 4-8 Tablets 4 Tabl... UD PRN PO 06/30/16 16:45 07/30/16 16:44 Dextrose (Dextrose 50% 50ML Syringe) 25-50ML OF 50% DW IV FOR... UD PRN IV 06/30/16 16:45 07/30/16 16:44 Glucagon (Glucagon Inj) 1 mg UD PRN SQ 06/30/16 16:45 07/30/16 16:44 Miscellaneous Information (Consult Glycemic Management Pharmacy) 1 ea UD PRN N/A 06/30/16 17:08 07/30/16 17:07 Allopurinol (Zyloprim Tab) 100 mg BID PO 06/30/16 21:00 07/30/16 20:59 07/02/16 19:41 100 MG Calcitriol (Rocaltrol Cap) 0.25 mcg DAILY PO 07/01/16 09:00 07/31/16 08:59 07/02/16 07:56 0.25 MCG Cholecalciferol (Vitamin D Tab) 1,000 inter.unit DAILY PO 07/01/16 09:00 07/31/16 08:59 07/02/16 07:56 1,000 INTER.UNIT Salmeterol Xinafoate/ Fluticasone (Advair Diskus 250/50 Inh) 1 puff BID PRN INH 06/30/16 17:15 07/30/16 17:14 Gabapentin (Neurontin Cap) 100 mg BID PO 06/30/16 21:00 07/30/16 20:59 07/02/16 19:41 100 MG Albuterol/ Ipratropium (Combivent Respimat Inh) 2 puffs QID PRN INH 06/30/16 17:15 07/30/16 17:14 Pravastatin Sodium 40 mg 40 mg HS PO 06/30/16 21:00 07/30/16 20:59 07/02/16 19:41 40 MG Pantoprazole Sodium/Dextrose (Protonix Inj/D5 100ml) 100 ml @ 20 mls/hr Q5H IV 06/30/16 19:45 07/30/16 19:44 07/02/16 18:49 20 MLS/HR Insulin Glargine (Lantus Solostar Pen) SEE PROTOCOL TEXT DAILY SC 07/01/16 09:00 07/31/16 08:59 Future hold 07/01/16 09:20 5 UNIT Hydralazine HCl (Apresoline Tab) 10 mg Q6H PRN PO 06/30/16 23:00 07/30/16 22:59
[2016-07-02 20:42] VITALS: BP 172/79; PULSE 110; TEMP 36.7; O2SAT 90
--- NOTE | 2016-07-03 07:44 | Discharge Summary ---
Discharge Summary Admission Date: Jun 30, 2016 at 18:53 Discharge Date: Jul 02, 2016 Discharge Disposition: Acute care facility Principal Diagnosis: GI Bleed, likely small intestine Procedures: Bilateral LE Venous Doppler 1. Nonocclusive deep venous thrombus within the right superficial femoral and popliteal veins. This thrombus is age indeterminate but chronic thrombus is favored. 2. No deep venous thrombus within the left lower extremity. 3. Suspected bilateral popliteal cysts. EGD The examined esophagus was normal. 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 There was diffuse atrophy and pallor of the mucosa of the body. A few random biopsies were done from the stomach. There was a 3-4 inflammatory appearing nodule in the antrum with a small ulcer and white clot. This was removed witha hot snare, and site was clipped. There was a 4 mm umbilicated nodule in the pre-pyloric antrum, possibly a pancreatic rest. The duodenum was normal. There was no clear source of UGIB on EGD. Colonoscopy - Diverticulosis in the entire examined colon. - One 10 mm polyp in the transverse colon, removed using injection-lift and a hot snare. Resected and retrieved. - One 3 mm polyp in the ascending colon, removed with a cold snare. Resected and retrieved. - Dark blood throughout the entire colon. NM GI Bleed scan Active GI bleeding is identified projecting over the mid pelvis and the left lower quadrant. This could be located within small bowel loops or the left colon. Consultations: Gastroenterology Vascular surgery Medication Reconciliation New Medications: Pantoprazole (Protonix) 1 Ea Inj 40 MG IV continuous for 30 Days Pantoprazole drip Insulin Aspart (Novolog Flexpen) 100 Units/Ml Inj 0 UNITS SC ACHS for 30 Days Goal range 140 - 180 Correction factor of 40 CHO ratio 1:13 Insulin Glargine (Lantus Solostar) 100 Unit/Ml Inj 0 UNIT SC DAILY for 30 Days If BSG <120 do not give lantus If BSG 121-179 give 5units If BSG >180 give 10units Continued Medications: Allopurinol (Zyloprim) 100 Mg Tab 100 MG PO BID, TAB Calcitriol (Calcitriol) 0.25 Mcg Cap 0.25 MCG PO DAILY, CAP Cholecalciferol (Vitamin D3) 1,000 Inter.unit Tab 1000 UNITS PO DAILY Fluticasone Prop/Salmeterol (Advair Diskus 250/50 60 Dose) 1 Ea Aerp 1 PUFF INH BID PRN for PRN, INHALER Gabapentin (Neurontin) 100 Mg Cap 100 MG PO BID, CAP Ipratropium-Albuterol (Combivent Respimat) 1 Aer Aer 2 PUFFS INH QID PRN for SOB/Wheezing, INH Oxygen (Oxygen) Gas 2 LITERS NA HS Pravastatin Sod (Pravastatin Sodium) 40 Mg Tab 40 MG PO HS Discontinued Medications: Aspirin (Aspir-81) 81 Mg Tab 81 MG PO HS for 90 Days, #90 TAB 3 Refills Furosemide (Lasix) 80 Mg Tab 80 MG PO QAM, TAB Furosemide (Lasix) 40 Mg Tab 40 MG PO 4PM, TAB Glipizide (Glipizide) 5 Mg Tab 5 MG PO QAM Metoprolol Succ (Toprol Xl) (Toprol-Xl) 25 Mg Tabcr 50 MG PO QAM, #30 Pantoprazole (Protonix) 40 Mg Tab 40 MG PO DAILY Warfarin Sodium (Coumadin) 4 Mg Tab 4 MG PO 2XWK, TAB tue&fri @ 4pm Warfarin Sodium (Coumadin) 2 Mg Tab 2 MG PO 5XWK, TAB sun,mon,wed,fatuma,sat Admission Information HPI (per Admitting provider): 85 yo F with h/o PUD and UGIB in 2012 presents with dark stools daily for two weeks along with progressive worsening of shortness of breath. She has been on twice daily PPI chronically, and aside from baby aspirin does not take any NSAIDs or OTC medications. She presented similarly in 2012 when she was found to have a mild ring and a small erosion at the GE junction along with a small shallow clean based ulcer in the antrum. A second nodular erosion was also seen with the remainder of the stomach appearing normal. At that time her baby aspirin was held for one week and she was placed on PPI for 3 months with repeat scope 6 weeks later. For the past two weeks she has experienced shortness of breath with increased oxygen requirements up to 2L continuously, dark stools without evidence of bright red blood and feels that her legs are more swollen. She is on Coumadin for a h/o R DVT. She reports using a rescue kit for COPD around the holiday, and tool roughly 16 days of prednisone ending around Jun 02. She felt better from a breathing standpoint after that treatment and prior to current symptoms starting. Today in the ER, her bloodwork reveals H/H 6.6/22 and PLTs 319, EBC 8, BUN 57, creat 1/5 with baseline creat 1.2-1.5. She is HD stable and off oxygen during this interview with no conversational dyspnea or significant work of breathing. She was given vit K 5mg, Protonix 40 IV and NSS. Two units of pRBCs were ordered and transfusion was started in the ER. Physical Exam (per Admitting): GEN: WNWD, in no acute distress, alert and appropriate, not on oxygen with no tachypnea or conversational dyspnea HEENT: NC/AT, PERRL, normal sclerae, pharynx non-acute, mucous membranes appear dry CARDIO: reg rate, S1/2 heard without m/g/r LUNGS: CTA bilaterally, no crackles, rales or wheezes, good diaphragmatic excursion ABD: soft, non-tender, non-distended, no rebound or guarding EXTREMITY: RP and DP palpable 2+ bilat, no LE swelling or edema, extremities are warm and well-perfused NEURO: CN 2-12 grossly intact, sensation intact throughout MUSC: 5/5 strength throughout, no focal deficits SKIN: warm and dry Hospital Course 85 y/o F with melena x two weeks and symptomatic anemia. GI was consulted. Hgb was ~6 on admission. Patient was transfused 3units PRBC's during hospitalization and Hgb remained stable ~8. Patient was started on a PPI drip. EGD did not show any source of bleeding. Colonoscopy also did not show any source of bleeding, but blood was seen throughout the entire colon. NM GI bleed scan was done and active bleeding was noted, most likely in the small intestine. Case was discussed with GI area operations manager who recommended transfer to [place] for IR evaluation. Patient does have a h/o provoked DVT a year ago. She has a h/o endometrial carcinoma and had been started on Megace, which was discontinued with the diagnosis of DVT. Patient was started on Coumadin and had been continued on this. LE doppler this admission showed a chronic DVT. Given that the DVT was provoked and ultrasound showed chronic DVT (and in light of active GI bleed), Coumadin was discontinued and Vascular surgery did not recommend an IVC filter. Patient was low-normotensive during most of hospitalization, so metoprolol had been held. Patient does have a h/o diastolic heart failure and she did receive Lasix with blood transfusions. Her home dose of Lasix had been held during hospitalization as patient was intermittently NPO for procedures. Patient appeared relatively euvolemic (with the exception of mild LE edema). Patient's glipizide was held and glucoses were controlled with insulin. Aspirin was held in light of active GI bleed. Patient deemed stable for transfer to [place] for IR evaluation. PE on discharge: General- awake; alert; NAD Eyes- EOMI; no scleral icterus Neck- no stridor; trachea midline Lungs- CTA bilaterally; no wheezes/crackles Heart- irregular; mildly tachycardic Abdomen- soft; NTND; nBS Back- no gross abnormalities Extremities- 1+ pitting edema bilateral lower legs; no deformity Neuro- no gross focal deficits Skin- no appreciable rash or bruise . Total time spent on discharge = This includes examination of the patient, discharge planning, medication reconciliation, and communication with other providers. Discharge Instructions Discharge Instructions Admission Reason for Admission: Gi Bleed Discharge Discharge Diagnosis / Problem: GI Bleed, likely small bowel etiology Discharge Goals Goal(s): Improve disease control, Diagnostic testing Activity Recommendations Activity Level: Up Ad Anita . Additional Information Patient informed of condition: Yes Advance Directives: No DNR: No Level of Care: Other Communicable Disease: No Prognosis: Stable Castelan Catheter: No Instructions / Follow-Up Instructions / Follow-Up Patient's antihypertensives and diuretics have been held in light of active GI bleed. Aspirin is also on hold. Coumadin has been discontinued given no clinical indication. Current Hospital Diet Patient's current hospital diet: Clear Liquid Diet, Diabetes Type 2 Diet Discharge Diet Recommended Diet: Clear Liquid Diet, Diabetes Type 2 Diet Procedures Procedures Performed: COLONOSOCPY, POLYPECTOMY, EGD, NM GI BLEED SCAN Pending Studies Studies pending at discharge: yes List of pending studies: Pathology from polypectomy Laboratory Results Hemoglobin A1c Test 07/01/16 04:39 Range/Units Estimated Average Glucose 151 mg/dl Hemoglobin A1c 6.9 H 4.5-5.6 % Medical Emergencies . Who to Call and When: Medical Emergencies: If at any time you feel your situation is an emergency, please call 911 immediately. . Non-Emergent Contact Non-Emergency issues call your: Primary Care Provider . . "Provider Documentation" section prepared by Crystal Saenz. Core Measure Problem Core Measures: None Additional Copies To Corky Garces D.O.
[2017-01-28] MEDS ORDERED: WARF2TAB PO (13:31)
[2017-01-28] MEDS ORDERED: WARF4TAB PO (13:31)
[2017-01-28] MEDS ORDERED: FERR1TAB13 PO (13:32)
== END 2016-07-02 21:35 | disposition short-term general hospital (02) | DRG 378 ==
LOC: ENRESERVTM → ENRESERVDT → C.EDB 10:27 → C.2T 18:53 → C.4E 07-01 16:50
PROVIDERS: ADMIT Hospitalist; ATTEND Internal Medicine
PROC: 0DB68ZX Excision of Stomach, Via Natural or Artificial Opening Endoscopic, Diagnostic (ICD-10-PCS; principal; 2016-07-01 11:26)
PROC: 0DBL8ZX Excision of Transverse Colon, Via Natural or Artificial Opening Endoscopic, Diagnostic (ICD-10-PCS; 2016-07-02 10:14)
PROC: 0DBK8ZX Excision of Ascending Colon, Via Natural or Artificial Opening Endoscopic, Diagnostic (ICD-10-PCS; 2016-07-02 10:14)
DX: K92.2 Gastrointestinal hemorrhage, unspecified (principal); J98.11 Atelectasis; N18.4 Chronic kidney disease, stage 4 (severe); I82.509 Chronic embolism and thrombosis of unspecified deep veins of unspecified lower extremity; I50.32 Chronic diastolic (congestive) heart failure; C54.1 Malignant neoplasm of endometrium; J44.9 Chronic obstructive pulmonary disease, unspecified; I25.10 Atherosclerotic heart disease of native coronary artery without angina pectoris; D12.3 Benign neoplasm of transverse colon; I12.9 Hypertensive chronic kidney disease with stage 1 through stage 4 chronic kidney disease, or unspecified chronic kidney disease; E78.5 Hyperlipidemia, unspecified; G60.9 Hereditary and idiopathic neuropathy, unspecified; M10.9 Gout, unspecified; H90.3 Sensorineural hearing loss, bilateral; Z79.01 Long term (current) use of anticoagulants; K57.30 Diverticulosis of large intestine without perforation or abscess without bleeding; Z96.642 Presence of left artificial hip joint

== ENCOUNTER → 2016-07-22 | Outpatient (CLI) | payer OTHER ==
[~2016-07-22] MED LIST changes: -ALL100 PO; +ALLO100T PO; +FERR1TAB13 PO; +INSDGIPEN SC; +NVLGIPEN SC; +RCL25 PO; +VTMD1000 PO; +WARF2TAB PO; +[UNRECOGNIZED DRUG - OTHER] IV
[2016-07-22 13:27] VITALS: BP 120/65; PULSE 67; TEMP 36.6; O2SAT 91
--- NOTE | 2016-07-22 16:55 | Radiation Oncology Follow-Up ---
Radiation Oncology Follow-Up Date of Visit Jul 22, 2016. 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 Singh is an 84-year-old female with multiple medical issues who presented with postmenopausal bleeding in November of this year. The bleeding lasted for 2-3 days and then cleared. However in December the bleeding recurred. On 01/09/2015 patient was sent for an ultrasound evaluation of the pelvis and she is not a candidate for contrast-enhanced CT scan. The uterus measured 8.4 x 4.0 x 4.0 cm. No focal myometrial abnormality was appreciated. The endometrial stripe measured 1.5 cm in thickness a 1.3 x 1.0 x 1.0 cm polyp was identified. The endometrial stripe was thought to be abnormally thick for an 84 -year-old female. Therefore additional studies were recommended.. A D&C was recommended and scheduled for early March. However patient refused at that time. This was rescheduled for April and was performed on 05/10/2015. At the time of the hysteroscopic examination multiple endometrial polyps were noted within the right frontal aspect of the uterus. These polyps were successfully removed. A thorough curettage of the cavity was then performed with a moderate amount of tissue obtained. 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 Case: [id number]. The patient was subsequently seen by Dr. Ilana Vogt for evaluation and discussion of treatment options. She stated that she did have some periodic bleeding until and has had none since then. The patient was seen on 06/07/2015. Based on the patient's medical status she did not feel that she was a good surgical candidate. He discussed the possibility of a CT scan for staging. However because of her inability to tolerate contrast secondary to her chronic renal disease this was not performed. She therefore discussed alternative treatment options. These included radiation as well as medical management with Megace or Mirena IUD. She asked Dr. Coates to assess the patient's medical status to evaluate the potential for surgical procedures. She was also kind enough to ask if we would see the patient in referral to discuss the potential radiation treatment options. It is for this reason that the patient is being seen in referral. She was started on Megace to treat the vaginal tumor which was causing vaginal bleeding. She unfortunately developed a DVT. She was admitted to [facility] and started on anticoagulation. She then began to have increased vaginal bleeding. Our office was consult to give palliative radiation therapy. Interim History She's been doing well over the past 6 months in regards to the aviation therapy. She has not had any further vaginal bleeding. She denies any pelvic pain or pressure. She was hospitalized for rectal bleeding. She was discharged 07/08/2016. She had upper GI and lower GI evaluations. She had a nonbleeding gastric ulcer on her bleeding scan the area of bleeding was in the left lower quadrant. 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 She had cauterization. This was carried out twice. She has not had any further rectal bleeding since the procedures. She had removal of a 2 polyps. These were both tubular adenomas. Case [id number]. Allergies Coded Allergies: Dextromethorphan (Verified Allergy, Severe, SHORTNESS OF BREATH, 06/30/16) Doxylamine (Verified Allergy, Severe, SHORTNESS OF BREATH, 06/30/16) Ethanol (Verified Allergy, Severe, SHORTNESS OF BREATH, 06/30/16) Pseudoephedrine (Verified Allergy, Severe, SHORTNESS OF BREATH, 06/30/16) Sulfa Antibiotics (Verified Allergy, Unknown, "SULFA DRUGS": HIVES, 06/30/16 ) Home Medications Scheduled Allopurinol (Zyloprim), 100 MG PO BID Calcitriol (Calcitriol), 0.25 MCG PO DAILY Cholecalciferol (Vitamin D3), 1,000 UNITS PO DAILY Furosemide (Lasix), 40 MG PO BID Gabapentin (Neurontin), 100 MG PO BID Glipizide (Glipizide), 5 MG PO QAM Metoprolol Succ (Toprol Xl) (Toprol-Xl), 50 MG PO QAM Oxygen (Oxygen), 2 LITERS NA HS Pantoprazole (Protonix), 40 MG PO DAILY Pravastatin Sod (Pravastatin Sodium), 40 MG PO HS Warfarin Sodium (Coumadin), 4 MG PO 2XWK Warfarin Sodium (Coumadin), 2 MG PO 5XWK Scheduled PRN Fluticasone Prop/Salmeterol (Advair Diskus 250/50 60 Dose), 1 PUFF INH BID PRN for PRN Ipratropium-Albuterol (Combivent Respimat), 2 PUFFS INH QID PRN for SOB/Wheezing Review of Systems Gastrointestinal: Symptoms: WNL Oral: Symptoms: No Problems Respiratory: Other Respiratory: wears o 2 at 2.0 liters at night Urinary: Symptoms: Nocturia Comments: nocturia times 1-2 Skin: Symptoms: No Problems Physical Exam Vital Signs Date Time Temp Pulse Resp B/P Pulse Ox O2 Delivery O2 Flow Rate FiO2 07/22/16 13:27 36.6 67 20 120/65 91 Pain: Side: Bilateral Patient Pain Scale: 0 - 10 Initial Pain Intensity: 0.0 General Appearance: no apparent distress Eyes: normal inspection Neck: no adenopathy Respiratory/Chest: lungs clear, no respiratory distress, no accessory muscle use Cardiovascular: regular rate, rhythm, no gallop, no murmur Abdomen: non tender, soft Genitourinary - Female: Normal external genitalia. There is telangiectasia at the upper vaginal nathan. There are no visible or palpable masses. There is no vaginal bleeding or discharge. Extremities: no pedal edema Neurologic/Psychiatric: no motor/sensory deficits, alert, normal mood/affect Skin: warm/dry Laboratory Studies Test 06/30/16 00:00 06/30/16 11:50 06/30/16 12:06 07/01/16 04:39 Immature Granulocyte % (Auto) 0.5 % White Blood Count 8.43 K/uL (4.8-10.8) 7.05 K/uL (4.8-10.8) Red Blood Count 2.53 M/uL (4.2-5.4) 2.66 M/uL (4.2-5.4) Hemoglobin 6.6 g/dL (12.0-16.0) Hematocrit 21.9 % (37-47) Mean Corpuscular Volume 86.6 fL (80-100) 86.8 fL (80-100) Mean Corpuscular Hemoglobin 26.1 pg (25-34) 27.1 pg (25-34) Mean Corpuscular Hemoglobin Concent 30.1 g/dl (32-36) 31.2 g/dl (32-36) Platelet Count 319 K/uL (130-400) 282 K/uL (130-400) Mean Platelet Volume 9.6 fL (7.4-10.4) 9.4 fL (7.4-10.4) Neutrophils (%) (Auto) 71.6 % Lymphocytes (%) (Auto) 21.0 % Monocytes (%) (Auto) 5.3 % Eosinophils (%) (Auto) 1.5 % Basophils (%) (Auto) 0.1 % Neutrophils # (Auto) 6.03 K/uL (1.4-6.5) Lymphocytes # (Auto) 1.77 K/uL (1.2-3.4) Monocytes # (Auto) 0.45 K/uL (0.11-0.59) Eosinophils # (Auto) 0.13 K/uL (0-0.5) Basophils # (Auto) 0.01 K/uL (0-0.2) Immature Granulocyte # (Auto) 0.04 K/uL (0.00-0.02) Nucleated RBC Absolute Count (auto) 0.04 K/uL (0-0) 0.02 K/uL (0-0) Nucleated Red Blood Cells % 0.4 % 0.2 % Red Blood Cell Morphology Unremarkable Hypochromasia PRESENT PTT 44.8 SECONDS (21.0-31.0) Partial Thromboplastin Ratio 1.7 Total Bilirubin 0.2 mg/dl (0.2-1) Direct Bilirubin < 0.1 mg/dl (0-0.2) Aspartate Amino Transferase (AST) 11 U/L (15-37) Alanine Aminotransferase (ALT) 13 U/L (12-78) Alkaline Phosphatase 74 U/L (45-117) Total Protein 6.4 gm/dl (6.4-8.2) Albumin 3.1 gm/dl (3.4-5.0) Urine Color YELLOW Urine Appearance CLEAR (CLEAR) Urine pH 6.5 (4.5-7.5) Urine Specific Hilton 1.014 (1.000-1.030) Urine Protein NEG (NEG) Urine Glucose (UA) NEG (NEG) Urine Ketones NEG (NEG) Urine Occult Blood NEG (NEG) Urine Nitrite NEG (NEG) Urine Bilirubin NEG (NEG) Urine Urobilinogen NEG (NEG) Urine Leukocyte Esterase TRACE (NEG) Urine WBC (Auto) 1-5 /hpf (0-5) Urine RBC (Auto) 0-4 /hpf (0-4) Urine Hyaline Casts (Auto) 1-5 /lpf (0-5) Urine Epithelial Cells (Auto) >30 /lpf (0-5) Urine Bacteria (Auto) NEG (NEG) POC Troponin I 0.010 ng/ml (0-0.045) RDW Standard Deviation 53.3 fL (36.4-46.3) RDW Coefficient of Variation 16.7 % (11.5-14.5) Prothrombin Time 15.8 SECONDS (9.0-12.0) Prothrombin Time INR 1.5 (0.9-1.1) Sodium Level 146 mmol/L (136-145) Potassium Level 3.6 mmol/L (3.5-5.1) Chloride Level 105 mmol/L (98-107) Carbon Dioxide Level 35 mmol/L (21-32) Anion Gap 6.0 mmol/L (3-11) Blood Urea Nitrogen 54 mg/dl (7-18) Creatinine 1.30 mg/dl (0.60-1.20) Est Creatinine Clear Calc Drug Dose 39.1 ml/min Estimated GFR () 42.7 Estimated GFR (Non- 36.9 BUN/Creatinine Ratio 41.3 (10-20) Random Glucose 119 mg/dl (70-99) Estimated Average Glucose 151 mg/dl Hemoglobin A1c 6.9 % (4.5-5.6) Calcium Level 8.2 mg/dl (8.5-10.1) Magnesium Level 2.2 mg/dl (1.8-2.4) Test 07/01/16 17:12 07/02/16 07:00 07/02/16 18:07 07/02/16 20:54 Hemoglobin 8.6 g/dL (12.0-16.0) 8.2 g/dL (12.0-16.0) Hematocrit 27.4 % (37-47) 26.2 % (37-47) White Blood Count 7.68 K/uL (4.8-10.8) Red Blood Count 3.05 M/uL (4.2-5.4) Mean Corpuscular Volume 85.9 fL (80-100) Mean Corpuscular Hemoglobin 26.9 pg (25-34) Mean Corpuscular Hemoglobin Concent 31.3 g/dl (32-36) RDW Standard Deviation 51.6 fL (36.4-46.3) RDW Coefficient of Variation 16.5 % (11.5-14.5) Platelet Count 286 K/uL (130-400) Mean Platelet Volume 9.3 fL (7.4-10.4) Prothrombin Time 13.0 SECONDS (9.0-12.0) Prothrombin Time INR 1.2 (0.9-1.1) Sodium Level 145 mmol/L (136-145) Potassium Level 3.6 mmol/L (3.5-5.1) Chloride Level 106 mmol/L (98-107) Carbon Dioxide Level 30 mmol/L (21-32) Anion Gap 9.0 mmol/L (3-11) Blood Urea Nitrogen 38 mg/dl (7-18) Creatinine 1.10 mg/dl (0.60-1.20) Est Creatinine Clear Calc Drug Dose 46.5 ml/min Estimated GFR () 52.3 Estimated GFR (Non- 45.1 BUN/Creatinine Ratio 34.8 (10-20) Random Glucose 148 mg/dl (70-99) Calcium Level 8.3 mg/dl (8.5-10.1) POC Glucose 166 mg/dl (70-90) 171 mg/dl (70-90) Assessment & Plan Plan: Continue river follow-up with her PCP. She wish to follow-up with our office in 6 months. She does not wish to travel back to [facility] for follow-up. She'll call if she has any question or or concerns in the interim. Total Time In Follow-Up I spent 20 minutes speaking to the patient performing examination. I spent 15 minutes reviewing information in completing this note. Copy To Corky Garces D.O.
== END | disposition home or self-care (01) ==
LOC: C.ONC 12:51
PROVIDERS: ATTEND Physician Assistant Medical
DX: Z08 Encounter for follow-up examination after completed treatment for malignant neoplasm (principal); Z92.3 Personal history of irradiation; Z85.42 Personal history of malignant neoplasm of other parts of uterus

== ENCOUNTER → 2017-01-28 | Outpatient (CLI) | payer OTHER ==
[2016-07-22 13:27] VITALS: BP 120/65; PULSE 67
[~2017-01-28] MED LIST changes: -ASPI-232 PO; -FURO80TA63 PO; -INSDGIPEN SC; -NVLGIPEN SC; -[UNRECOGNIZED DRUG - OTHER] IV
[2017-01-28 12:45] VITALS: BP_SYST 154; BP_SYST 189; BP_DIAS 79; BP_DIAS 97; PULSE 76; TEMP 36.6; O2SAT 94
--- NOTE | 2017-01-28 15:41 | Radiation Oncology Follow-Up ---
Radiation Oncology Follow-Up Date of Visit Jan 28, 2017. 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 Singh is an 86-year-old female with multiple medical issues who presented with postmenopausal bleeding in November of this year. The bleeding lasted for 2-3 days and then cleared. However in December the bleeding recurred. On 01/09/2015 patient was sent for an ultrasound evaluation of the pelvis and she is not a candidate for contrast-enhanced CT scan. The uterus measured 8.4 x 4.0 x 4.0 cm. No focal myometrial abnormality was appreciated. The endometrial stripe measured 1.5 cm in thickness a 1.3 x 1.0 x 1.0 cm polyp was identified. The endometrial stripe was thought to be abnormally thick for an 84 -year-old female. Therefore additional studies were recommended.. A D&C was recommended and scheduled for early March. However patient refused at that time. This was rescheduled for April and was performed on 05/10/2015. At the time of the hysteroscopic examination multiple endometrial polyps were noted within the right frontal aspect of the uterus. These polyps were successfully removed. A thorough curettage of the cavity was then performed with a moderate amount of tissue obtained. 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 Case: [id number]. The patient was subsequently seen by Dr. Ilana Vogt for evaluation and discussion of treatment options. She stated that she did have some periodic bleeding until and has had none since then. The patient was seen on 06/07/2015. Based on the patient's medical status she did not feel that she was a good surgical candidate. He discussed the possibility of a CT scan for staging. However because of her inability to tolerate contrast secondary to her chronic renal disease this was not performed. She therefore discussed alternative treatment options. These included radiation as well as medical management with Megace or Mirena IUD. She asked Dr. Coates to assess the patient's medical status to evaluate the potential for surgical procedures. She was also kind enough to ask if we would see the patient in referral to discuss the potential radiation treatment options. It is for this reason that the patient is being seen in referral. She was started on Megace to treat the vaginal tumor which was causing vaginal bleeding. She unfortunately developed a DVT. She was admitted to [facility] and started on anticoagulation. She then began to have increased vaginal bleeding. Our office was consult to give palliative radiation therapy. Interim History She's been doing well over the past 6 months. She denies any change in urination or bowel habits. She denies vaginal discharge or irritation. Her daughter did note a small amount of spotting on her pad that she wears for incontinence. She denies any pelvic pressure or pain. She had been hospitalized for 4 days due to rectal bleeding. She described an AV malformation. She was evaluated at [facility] as well as [facility]. She has not had any further rectal bleeding since that admission. We discussed this at her last visit 6 months ago. She has had no bleeding since that time. She did have 2 polyps removed during her GI evaluation. She no longer follows up with the gynecologic oncologist due to distance of travel. Allergies Coded Allergies: Dextromethorphan (Verified Allergy, Severe, SHORTNESS OF BREATH, 06/30/16) Doxylamine (Verified Allergy, Severe, SHORTNESS OF BREATH, 06/30/16) Ethanol (Verified Allergy, Severe, SHORTNESS OF BREATH, 06/30/16) Pseudoephedrine (Verified Allergy, Severe, SHORTNESS OF BREATH, 06/30/16) Sulfa Antibiotics (Verified Allergy, Unknown, "SULFA DRUGS": HIVES, 06/30/16 ) Home Medications Scheduled Allopurinol (Zyloprim), 100 MG PO BID Calcitriol (Calcitriol), 0.25 MCG PO DAILY Cholecalciferol (Vitamin D3), 1,000 UNITS PO DAILY Ferrous Sulfate (Kp Ferrous Sulfate), 1 TAB PO DAILY Furosemide (Lasix), 40 MG PO BID Gabapentin (Neurontin), 100 MG PO BID Glipizide (Glipizide), 5 MG PO QAM Home O2 Therapy (Oxygen), 2 LITERS NA HS Metoprolol Succ (Toprol Xl) (Toprol-Xl), 50 MG PO QAM Pantoprazole (Protonix), 40 MG PO DAILY Pravastatin Sod (Pravastatin Sodium), 40 MG PO HS Warfarin Sodium (Coumadin), 1 TAB PO 3XWK Warfarin Sodium (Coumadin), 1 TAB PO 4XWK Scheduled PRN Fluticasone Prop/Salmeterol (Advair Diskus 250/50 60 Dose), 1 PUFF INH BID PRN for PRN Ipratropium-Albuterol (Combivent Respimat), 2 PUFFS INH QID PRN for SOB/Wheezing Review of Systems Gastrointestinal: Symptoms: WNL GI Comments: Takes stool softner BID;No fiber supplements;no further rectal bleeding; Oral: Symptoms: No Problems Respiratory: Symptoms: SOB With Exertion Respiratory Comments: Wear oxygen at 2l/min via nasal cannula at bedtime. Other Respiratory: Currently with postnasal drip - allergies; Urinary: Symptoms: WNL Comments: nocturia times 1-2 Skin: Symptoms: No Problems Physical Exam Vital Signs Date Time Temp Pulse Resp B/P (MAP) Pulse Ox O2 Delivery O2 Flow Rate FiO2 01/28/17 12:45 36.6 76 12 189/79 94 154/97 Pain: Side: Bilateral Patient Pain Scale: 0 - 10 Initial Pain Intensity: 0.0 Fatigue: None General Appearance: no apparent distress Eyes: normal inspection, EOMI ENT: normal ENT inspection, hearing grossly normal Respiratory/Chest: lungs clear, no respiratory distress, no accessory muscle use Cardiovascular: regular rate, rhythm, no gallop, no murmur Abdomen: non tender, soft Genitourinary - Female: External genitalia reveals atrophic vaginitis of the introitus. Vaginal examination reveals mild telangiectasia. There are no masses or tenderness. She has no pain on bimanual examination. There is no vaginal discharge or bleeding. Anal / Rectum: Normal sphincter tone. Mild external hemorrhoids. The rectal masses and no rectal bleeding. Neurologic/Psychiatric: no motor/sensory deficits, alert, normal mood/affect Skin: warm/dry Assessment & Plan Plan: I discussed with patient and her daughter that she has atrophic vaginitis. It is felt this is what is causing occasional spotting. I've asked them to apply Aquaphor to help with moisturizing and created barrier. We discussed that should she have increased bleeding she will need to be evaluated again by the gynecologic oncologist. She'll otherwise return to our office in 1 year. She may call if she has any questions or concerns in the interim. Total Time In Follow-Up I spent 25 minutes speaking to the patient performing examination. I spent 15 minutes reviewing information in completing this note. Copy To Corky Garces D.O.
== END | disposition home or self-care (01) ==
LOC: C.ONC 12:38
PROVIDERS: ATTEND Physician Assistant Medical
DX: Z08 Encounter for follow-up examination after completed treatment for malignant neoplasm (principal); Z92.3 Personal history of irradiation; Z85.42 Personal history of malignant neoplasm of other parts of uterus